=== PATIENT | female | born 1935 | race Caucasian/White ===

== ENCOUNTER → 2016-09-29 | Outpatient (CLI) | payer MEDICARE, OTHER ==
[2015-06-11 09:16] VITALS: BP 156/88
[~2016-09-29] MED LIST: ACET325T9 PO; ASCO500T2 PO; ASPI325T8 PO; CALC500T30 PO; CYAN10005 PO; IBUP-1027 PO; IOHEXOL 180 MG/ML 10 ML VIAL. ONE; NIAC500T PO; OMEG1CAP6 PO; UBID30CA6 PO; VITA10003 PO; VITA400T4 PO; [UNRECOGNIZED DRUG - CODE] PO; methylPREDNISolone ACETATE 40 MG/ML VIAL. ONE; methylPREDNISolone ACETATE 80 MG/ML VIAL. ONE
--- NOTE | 2016-09-30 07:50 | PAIN ---
DATE OF SERVICE: 09/29/2016 INITIAL CONSULTATION FOR PAIN CLINIC CHIEF COMPLAINT: Low back and bilateral lower extremity pain. HISTORY OF PRESENT ILLNESS: This is an 81-year-old female who presents with history of pain in the low back and bilateral lower extremities for "many years." The patient reports it is worse over the past 6 months or so, increasing with activity, especially with trying to tend the garden, stooping or bending, standing for more than 15-20 minutes, better with sitting or lying down, but still awakens her from sleep. After about 3:00 a.m., she is up and she has had difficulty getting back to sleep because of the pain in her back and legs, worse on the right side than the left. The patient reports it does not affect her bowel or bladder control, does not affect her ability to walk, specifically, she is not using any assistive devices to ambulate. She has had physical therapy in the past as well as chiropractic treatment and is doing exercises currently, which has not been helping the pain much and she is having difficulty doing the exercises because of the pain. The patient is taking Tylenol and ibuprofen, both of which decreased the pain only by about 20%. The patient reports disability rate from 0 to 10, 10 being the worst, it is 6 with family and home responsibilities, 7 with recreation and social activity, 3 with occupation, 2 with life support activities, and 0 with self care. The patient did have a CT scan of lumbar spine showing spondylitic changes with a transitional segment, mild canal narrowing is likely in the lower lumbar spine with ligamentum flavum hypertrophy and slight disk bulging at L3-L4 and L4-L5, minimal canal narrowing at L4-L5 as well. PAST MEDICAL HISTORY: Significant for arthritis, celiac disease, irritable bowel syndrome, hypertension, hearing loss. PREVIOUS SURGERY: Includes pacemaker placement, tonsillectomy, cholecystectomy, hysterectomy, carpal tunnels repair, skin cancer excision, rhinoplasty, appendectomy, and cataract extractions bilaterally. CURRENT MEDICATIONS: Include ____; methylsulfonylmethane; fish oil; vitamin B12; daily baby aspirin; vitamin C, E, and ____; ibuprofen; and Tylenol. ALLERGIES: THE PATIENT IS ALLERGIC TO CODEINE. FAMILY HISTORY: Significant for arthritis, diabetes, and heart disease. SOCIAL HISTORY: The patient does not smoke, does not drink alcohol. She is a Sister of Jina, lives in the [facility] in [place]. REVIEW OF SYSTEMS: The patient's review of systems is positive for those items mentioned in history of present illness. All systems reviewed and otherwise negative. It is complete, full and well documented on the patient's chart. PHYSICAL EXAMINATION: VITAL SIGNS: Blood pressure 191/77, pulse 62, respirations 18, temperature 98.4 degrees Fahrenheit. Height is 5 feet 5 inches, weighs 215 pounds. GENERAL: The patient is awake, alert, oriented, appropriate, very pleasant demeanor. HEENT: Head shows normocephalic, atraumatic. Extraocular movements are intact and symmetrical. Oral cavity, mucous membranes are moist and pink. Dentition is intact. NECK: Shows anterior throat supple without palpable lymphadenopathy noted. Swallow reflex is symmetrical. CHEST: Shows normal on inspection. Breath sounds clear to auscultation bilaterally. HEART: Shows S1 and S2 clear. ABDOMEN: Soft, nontender, nondistended. No palpable organomegaly. No rebound or guarding demonstrated. BACK: Shows spine grossly in the midline, slight exaggeration of thoracic kyphosis and mild flattening of lumbar lordotic curvature. No previous bruises, lesions, rashes or scars are noted. Lumbar paraspinous muscle shows some moderate tenderness with palpation, but only with deep palpation in the lower lumbar distribution, but is symmetrical without evidence of atrophy or hypertrophy. No tenderness over the sacrum and sacroiliac regions over the spinous processes. The patient shows good rotational motion of the lumbar spine, both laterally as well as extension and flexion without difficulty or pain reported. LOWER EXTREMITIES: Show deep tendon reflexes 2+ in the patellar, 1+ in the tendo calcaneus tendons. Motor exam is strong with 5/5 dorsiflexion, extension, quadriceps and hamstring flexion bilaterally. Peripheral pulses are 1+ in the posterior tibial and dorsalis pedis pulses. No peripheral edema is noted. No clubbing, no cyanosis. Lower extremities are warm and dry to touch, equal in color and appearance. Straight leg raise noted to be slightly positive on the right, but not on the left at about 45 degrees, which is decreased with knee flexion. Gaenslen's and Tomasz's maneuvers are negative bilaterally. The patient is able to stand, stand on her toes, and is walking with a normal appearing gait and does not have a shuffling or antalgic gait for short distance in the office today, not using any assistive devices such as canes or walkers to ambulate. IMPRESSION: 1. This is an 81-year-old female with a long history of low back and bilateral lower extremity pain, worse on the right than the left in a radicular fashion. 2. CT scan of lumbar spine as noted. 3. Hypertension. 4. Arthritis. 5. Hearing loss. PLAN: Options were discussed with the patient including conservative medical management, physical therapies, interventional techniques. She would like to pursue interventional techniques. We discussed the lumbar epidural steroid injection using description as well as anatomical models to describe the procedure. Risks were then discussed including, but not limited to bleeding, infection, possibility of epidural hematoma, subsequent neurologic compromise, dural puncture, headaches, spinal cord and/or nerve damage, side effects of steroid medication and poor results regarding pain control. The patient understands and wishes to proceed. The patient will return to clinic in approximately 2 weeks for followup. She was counseled on return appointment, activity level and side effects to be aware of. DIAGNOSES: Lumbar radiculopathy with lumbar degenerative disk disease. PROCEDURE: Lumbar epidural steroid injection, translaminar approach at the L4-L5 level using C-arm fluoroscopic guidance under sterile prep and drape, using local anesthetic. MEDICATION INJECTED: 120 mg of Depo-Medrol plus 10 mL of preservative-free normal saline and 2 mL of Isovue for contrast. CONDITION AT DISCHARGE: Stable. The patient tolerated the procedure well, had no complications. ROZINA GARSIA MD DR: AMADA/martine JOB#: [id number] / [id number]
== END | disposition home or self-care (01) ==
LOC: PNCL 10:20
PROVIDERS: ATTEND Anesthesiology
DX: M51.16 Intervertebral disc disorders with radiculopathy, lumbar region (principal); M19.90 Unspecified osteoarthritis, unspecified site; H91.90 Unspecified hearing loss, unspecified ear; I10 Essential (primary) hypertension; Z90.710 Acquired absence of both cervix and uterus; Z90.49 Acquired absence of other specified parts of digestive tract; Z98.41 Cataract extraction status, right eye; Z98.42 Cataract extraction status, left eye; Z83.3 Family history of diabetes mellitus; Z88.6 Allergy status to analgesic agent; E78.00 Pure hypercholesterolemia, unspecified
CPT/HCPCS: 62323; J1030; J1040

== ENCOUNTER → 2016-10-18 | Outpatient (CLI) | payer MEDICARE, OTHER ==
[2015-06-11 09:16] VITALS: BP 156/88
[~2016-10-18] MED LIST changes: -IOHEXOL 180 MG/ML 10 ML VIAL. ONE; -methylPREDNISolone ACETATE 40 MG/ML VIAL. ONE; -methylPREDNISolone ACETATE 80 MG/ML VIAL. ONE
== END | disposition home or self-care (01) ==
LOC: PNCL 12:41
PROVIDERS: ATTEND Anesthesiology
DX: M51.16 Intervertebral disc disorders with radiculopathy, lumbar region (principal); M40.294 Other kyphosis, thoracic region; M79.661 Pain in right lower leg; M79.662 Pain in left lower leg; I10 Essential (primary) hypertension
CPT/HCPCS: G0463

== ENCOUNTER 2017-03-29 08:28 | Outpatient (CLI) | payer MEDICARE, OTHER ==
[2017-03-29] MEDS ORDERED: IOHEXOL 180 MG/ML 10 ML VIAL. IT ONE (09:00)
[2017-03-29] MEDS ORDERED: CONTRAST GIVEN MC PRN (09:00)
[2017-03-29] MEDS ORDERED: LIDOCAINE 1% / SOD BICARB 8.4% 20 ML VIAL. IJ ONE (09:00)
[2017-03-29 10:05] VITALS: BP 226/85
[2017-03-29 10:08] VITALS: BP 238/86
[2017-03-29 10:36] VITALS: BP 231/90
--- NOTE | 2017-03-29 10:38 | RAD ---
Lumbar myelogram, 03/29/2017: History: Neurogenic claudication, back pain Under local anesthesia, aseptic conditions and fluoroscopic guidance a lumbar puncture was performed at the L4 level utilizing a 25-gauge Princess spinal needle. Good clear CSF flow was obtained following which 14 cc of Omnipaque 180 was injected into the thecal sac. The spinal needle was then removed and appropriate lumbar imaging performed. 3.0 minutes of fluoroscopy time was utilized. 13 fluoroscopic spot images were recorded. The patient tolerated the procedure well and was sent to CT in good condition. The following findings are delineated on the myelogram: 1. There are 6 lumbar type vertebral bodies. For purposes of these reports the lowest visible disc space will be considered to be L6-S1. 2. In the upright position there is a mild spondylolisthesis at L5-6. There are prominent anterior and posterior extradural defects, as well as lateral extradural defects, left greater than right, at this level causing moderate central spinal stenosis. No definite instability was seen on the upright lateral flexion and extension views. 3. There are mild anterior extradural defects at L2-3, L3-4 and L4-5. 4. There is poor opacification of the nerve root sleeves in the lumbar spine, with the exception of the S1 nerve root sleeves. CT of the lumbar spine-post myelogram, 03/29/2017: Multidetector CT imaging was performed with multiplanar reconstructions produced. The following findings are delineated: 1. At L1-2 there are mild degenerative changes involving the facet joints. No significant posterior disc bulge is seen. The central spinal canal and neural foramina are well maintained. 2. At L2-3 there is mild posterior disc bulging and marginal spurring. The central spinal canal and neural foramina are well maintained. 3. At L3-4 there is a vacuum disc phenomena with moderate broad-based posterior disc bulging. There is mild posterior ligamentous thickening related to mild facet joint arthropathy. The thecal sac measures 11 mm in AP diameter at the midline. There is only minimal inferior foraminal narrowing. 4. At L4-5 there is mild posterior annular bulging. There are mild degenerative changes involving the facet joints with mild posterior ligamentous thickening. The thecal sac measures 10 mm in AP diameter at the midline. The neural foramina are well maintained. 5. At L5-6 there is a vacuum disc phenomena with moderate broad-based posterior disc bulging. There are extensive degenerative changes involving the facet joints with moderate posterior ligamentous thickening. In the supine position for the CT exam there is only slight anterolisthesis at L5-6. More prominent anterolisthesis was present on the myelogram images in the upright position. At the disc level the thecal sac is mildly narrowed in a triangular configuration measuring 7-8 mm in AP diameter at the midline. There is mild distortion of the left side of the thecal sac just inferior to the disc level related to a mildly heterogeneous medium density process in the spinal canal, of lower density than the thickened ligamentum flavum. This could be a poorly defined synovial cyst related to the left facet joint or a scar. There is only mild foraminal narrowing bilaterally. 6. At L6-S1 there are moderate degenerative changes involving the facet joints. There is mild posterior annular bulging. The central spinal canal and neural foramina are well maintained. 7. Incidental note is made of moderate colonic diverticulosis. There is moderate aortic atherosclerosis. A 1 x 2 cm nonspecific right adrenal nodule is noted. IMPRESSION: 1. Six lumbar type vertebral bodies with the lowest visible displaced termed L6-S1 for purposes of these reports. 2. Multilevel degenerative changes as described above. 3. Mild spondylolisthesis at L5-6 with moderate associated central spinal stenosis, best demonstrated on the upright myelographic images. 4. Mild narrowing of the left side of the thecal sac just inferior to the L5-6 disc level which may be due to scarring or a poorly defined synovial cyst. 5. Small nonspecific right adrenal nodule.
[2017-03-29 10:46] VITALS: BP 217/104
== END 2017-03-29 11:26 | disposition home or self-care (01) ==
LOC: RAD 08:28
PROVIDERS: ATTEND Neurological Surgery
DX: M43.16 Spondylolisthesis, lumbar region (principal); Z79.01 Long term (current) use of anticoagulants; Z95.0 Presence of cardiac pacemaker
CPT/HCPCS: 72132; 72265

== ENCOUNTER → 2017-04-27 | Outpatient (CLI) | payer MEDICARE, OTHER ==
[2017-04-27 09:02] LABS: ADD MAN DIFF? NO
[2017-04-27 09:21] LABS: BASO % 1 % (0-3); EOS # 0.1 x10^3/uL (0.0-0.7); EOS % 2 % (0-3); HEMATOCRIT 40.8 % (36.0-47.0); HEMOGLOBIN 13.9 g/dL (12.0-15.5); LYMPH # 1.4 x10^3/uL (1.0-4.8); LYMPH % 20 % (24-48); MEAN CORPUSCULAR HEMOGLOBIN 30 pg (25-35); MEAN CORPUSCULAR HGB CONC 34 g/dL (31-37); MEAN CORPUSCULAR VOLUME 89 fL (79-100); MONO # 0.8 x10^3/uL (0.0-1.1); MONO % 12 % (0-9); NEUT # 4.7 x10^3uL (1.8-7.7); NEUT % 66 % (31-73); PLATELET COUNT 228 x10^3/uL (140-400); RED BLOOD COUNT 4.56 x10^6/uL (3.50-5.40); RED CELL DISTRIBUTION WIDTH 13.8 % (11.5-14.5)
[2017-04-27 09:31] LABS: ALBUMIN 3.9 g/dL (3.4-5.0); ALBUMIN/GLOBULIN RATIO 1.1 (1.0-1.7); ALK PHOS 79 U/L (46-116); ALT (SGPT) 26 U/L (14-59); ANION GAP 8 (6-14); AST (SGOT) 21 U/L (15-37); BLOOD UREA NITROGEN 30 mg/dL (7-20); BUN/CREATININE RATIO 30 (6-20); CALCIUM 9.9 mg/dL (8.5-10.1); CARBON DIOXIDE 30 mmol/L (21-32); CHLORIDE 102 mmol/L (98-107); GFR 53.2; GLUCOSE 70 mg/dL (70-99); POTASSIUM 4.2 mmol/L (3.5-5.1); SODIUM 140 mmol/L (136-145); TOTAL BILIRUBIN 0.7 mg/dL (0.2-1.0); TOTAL PROTEIN 7.6 g/dL (6.4-8.2)
[2017-04-27 22:14] LABS: MRSA BY PCR Negative (Negative)
== END | disposition home or self-care (01) ==
LOC: SURGPAT 08:33
DX: R94.31 Abnormal electrocardiogram [ECG] [EKG] (principal)
CPT/HCPCS: 36415; 80053; 85025; 87641; 93005

== ENCOUNTER 2017-05-04 06:52 | Observation (INO) | payer MEDICARE, OTHER ==
[2017-05-04] MEDS ORDERED: ONDANSETRON PF 4 MG/2 ML VIAL. IV ×2 (07:00→11:45)
[2017-05-04] MEDS ORDERED: PROCHLORPERAZINE 10 MG/2 ML VIAL. IV (07:00)
[2017-05-04] MEDS ORDERED: HYDROmorphone 2 MG/ML VIAL IV (07:00)
[2017-05-04] MEDS ORDERED: MORPHINE SULFATE 2 MG/ML DISP.SYRIN. IV (07:00)
[2017-05-04] MEDS ORDERED: fentaNYL PF VIAL 100 MCG/2 ML VIAL IV ×3 (07:00→11:45)
[2017-05-04] MEDS ORDERED: LIDOCAINE 1% PF 2 ML VIAL. ID (07:00)
[2017-05-04] MEDS: IV RINGERS,LACTATED 1000ML 1,000 ML IV ×2 (07:36→12:12)
[2017-05-04] MEDS ORDERED: GLYCOPYRROLATE 1 MG/5 ML VIAL. (08:00)
[2017-05-04] MEDS ORDERED: fentaNYL PF VIAL 100 MCG/2 ML VIAL (08:12)
[2017-05-04] MEDS ORDERED: LIDOCAINE 2% PF Vial for OR 5 ML VIAL. (08:12)
[2017-05-04] MEDS ORDERED: ROCURONIUM 50 MG/5 ML VIAL. (08:12)
[2017-05-04] MEDS ORDERED: DEXAMETHASONE SOD PHOS 20 MG/5 ML VIAL. (08:12)
[2017-05-04] MEDS ORDERED: ONDANSETRON PF 4 MG/2 ML VIAL. (08:12)
[2017-05-04] MEDS ORDERED: REMIFENTANIL 2 MG VIAL. IV (08:12)
[2017-05-04] MEDS ORDERED: PROPOFOL 20 ML IV (08:12)
[2017-05-04] MEDS ORDERED: PHENYLEPHRINE 10 MG/ML VIAL. (08:15)
[2017-05-04] MEDS ORDERED: PROPOFOL 50 ML IV ×2 (08:17→09:59)
[2017-05-04] MEDS ORDERED: MINERAL OIL/PETROLATUM,WHITE OPHTH OINT 3.5GM TUBE. (08:48)
[2017-05-04] MEDS: BACITRACIN 50,000 UNIT in IV NORMAL SALINE 1000ML BAG 1,000 ML IRR (09:28)
[2017-05-04] MEDS: THROMBIN TOPICAL 20,000 UNIT SPRAY.SYRN KIT TP (09:28)
[2017-05-04] MEDS: KETOROLAC 60 MG/2 ML INJ FOR OR. (09:28)
[2017-05-04] MEDS: GELATIN SPONGE SIZE 100. (09:28)
[2017-05-04] MEDS: BUPIVAC MPF-EPI 0.75%-1:200000 30 ML VIAL. (09:28)
[2017-05-04] MEDS ORDERED: DESFLURANE > 120 MINUTES IH (10:29)
[2017-05-04] MEDS ORDERED: NEOSTIGMINE METHYLSULFATE 5 MG/5 ML SYRINGE. (11:23)
[2017-05-04] MEDS ORDERED: diphenhydrAMINE HCL 25 MG CAPSULE PO (11:45)
[2017-05-04] MEDS ORDERED: 0.9 % SODIUM CHLORIDE 10 ML DISP.SYRIN. IV (11:45)
[2017-05-04] MEDS ORDERED: MAGNESIUM HYDROXIDE 2,400 MG/30 ML ORAL.SUSP. PO (11:45)
[2017-05-04] MEDS ORDERED: diphenhydrAMINE 50 MG/ML VIAL IV (11:45)
[2017-05-04] MEDS ORDERED: IBUPROFEN 400 MG TABLET. PO (11:45)
[2017-05-04] MEDS ORDERED: ACETAMINOPHEN 325 MG TABLET. PO (11:45)
[2017-05-04] MEDS ORDERED: MAG HYDROX/ALUMINUM HYD/SIMETH 30 ML ORAL.SUSP PO (11:45)
[2017-05-04] MEDS ORDERED: CALCIUM CARBONATE 500 MG TAB.CHEW PO (11:45)
[2017-05-04] MEDS ORDERED: amLODIPine BESYLATE 5 MG TABLET PO (13:00)
[2017-05-04] MEDS ORDERED: CYANOCOBALAMIN (VITAMIN B-12) 1,000 MCG TABLET. PO (13:00)
[2017-05-04] MEDS ORDERED: ASPIRIN ENTERIC COATED 81 MG TABLET.DR. PO (13:00)
[2017-05-04] MEDS ORDERED: hydroCHLOROthiazide 12.5 MG CAPSULE PO (13:00)
[2017-05-04] MEDS ORDERED: ASCORBIC ACID 500 MG TABLET PO (13:00)
[2017-05-04] MEDS: fentaNYL PF VIAL 100 MCG/2 ML VIAL IV (13:36)
[2017-05-04] MEDS ORDERED: traMADol 50 MG TABLET PO (15:30)
[2017-05-04] MEDS: traMADol 50 MG TABLET PO ×2 (15:39→17:44)
[2017-05-04] MEDS: POTASSIUM CL 20MEQ D5-0.45NACL 1,000 ML IV (17:40)
[2017-05-04] MEDS: BENZOCAINE/MENTHOL LOZENGE. PO ×2 (18:56→20:57)
[2017-05-04] MEDS: DOCUSATE SODIUM 100 MG CAPSULE. PO ×2 (20:57→20:58)
[2017-05-05] MEDS: traMADol 50 MG TABLET PO ×3 (00:34→12:18)
[2017-05-05] MEDS: BENZOCAINE/MENTHOL LOZENGE. PO ×4 (00:34→10:58)
[2017-05-05] MEDS: VITAMIN E 200 UNIT CAPSULE. PO (08:54)
[2017-05-05] MEDS: ASCORBIC ACID 500 MG TABLET PO (08:54)
[2017-05-05] MEDS: CYANOCOBALAMIN (VITAMIN B-12) 1,000 MCG TABLET. PO (08:54)
[2017-05-05] MEDS: LOSARTAN POTASSIUM 50 MG TABLET. PO (08:55)
[2017-05-05] MEDS: ASPIRIN ENTERIC COATED 81 MG TABLET.DR. PO (08:55)
[2017-05-05] MEDS: hydroCHLOROthiazide 12.5 MG CAPSULE PO (08:55)
[2017-05-05] MEDS: amLODIPine BESYLATE 5 MG TABLET PO (08:56)
[2017-05-05] MEDS: DOCUSATE SODIUM 100 MG CAPSULE. PO (08:58)
[2017-05-05] MEDS ORDERED: METHYLSULFONYLMETHANE 1000 MG PO (09:00)
== END 2017-05-05 13:30 | disposition home or self-care (01) ==
LOC: SURG 06:52 → 4 NORTH 05-05 05:59 → 4 SOUTHEST 11:45 → 4 SOUTHWST 18:57
DX: M48.061 Spinal stenosis, lumbar region without neurogenic claudication (principal); M43.10 Spondylolisthesis, site unspecified; Z83.3 Family history of diabetes mellitus; Z85.828 Personal history of other malignant neoplasm of skin; Z90.710 Acquired absence of both cervix and uterus
CPT/HCPCS: 63030; 76000; 88304; 88311; 96374; G0378; G0379; J0690; J1100; J1885; J2405; J2704; J2710; J3010; J3490; J7030; J7120

== ENCOUNTER → 2018-05-16 | Outpatient (CLI) | payer MEDICARE, OTHER ==
[2017-05-05 11:00] VITALS: BP 151/59
[~2018-05-16] MED LIST changes: +AMLO5TAB10 PO; +ASPI-482 PO; +CALC500T54 PO; +CELE200C PO; +CYAN-25 PO; -CYAN10005 PO; +DOCU-109 PO; +FENT1PAT15 TP; +FENT1PAT17 TD; +HYDR12.575 PO; +LOSA100T14 PO; +ONDA4TAB7 PO; +POLY17PO29 PO; +TRAM50TA PO
--- NOTE | 2018-05-16 14:47 | EKG ---
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
[2018-05-16 16:05] LABS: BASO % 1 % (0-3); EOS # 0.1 x10^3/uL (0.0-0.7); EOS % 1 % (0-3); HEMATOCRIT 36.4 % (36.0-47.0); HEMOGLOBIN 12.3 g/dL (12.0-15.5); LYMPH # 1.3 x10^3/uL (1.0-4.8); LYMPH % 17 % (24-48); MEAN CORPUSCULAR HEMOGLOBIN 31 pg (25-35); MEAN CORPUSCULAR HGB CONC 34 g/dL (31-37); MEAN CORPUSCULAR VOLUME 91 fL (79-100); MONO # 0.6 x10^3/uL (0.0-1.1); MONO % 8 % (0-9); NEUT # 5.8 x10^3uL (1.8-7.7); NEUT % 73 % (31-73); PLATELET COUNT 236 x10^3/uL (140-400); RED BLOOD COUNT 4.01 x10^6/uL (3.50-5.40); RED CELL DISTRIBUTION WIDTH 13.5 % (11.5-14.5); WHITE BLOOD COUNT 7.9 x10^3/uL (4.0-11.0)
[2018-05-16 16:13] LABS: PROTHROMBIN TIME PATIENT 12.8 SEC (11.7-14.0)
[2018-05-16 16:23] LABS: ALBUMIN 3.6 g/dL (3.4-5.0); CALCIUM 9.3 mg/dL (8.5-10.1); CREATININE 1.1 mg/dL (0.6-1.0); GFR 47.6; POTASSIUM 3.9 mmol/L (3.5-5.1); TOTAL BILIRUBIN 0.5 mg/dL (0.2-1.0); TOTAL PROTEIN 7.2 g/dL (6.4-8.2)
== END | disposition home or self-care (01) ==
LOC: SURGPAT 13:31
PROVIDERS: ATTEND Neurological Surgery
DX: Z01.818 Encounter for other preprocedural examination (principal); M43.16 Spondylolisthesis, lumbar region; Z88.8 Allergy status to other drugs, medicaments and biological substances
CPT/HCPCS: 36415; 80053; 85025; 85610; 85730; 87641; 93005

== ENCOUNTER 2018-06-17 07:43 | Inpatient (IN) | payer MEDICARE, OTHER ==
--- NOTE | 2018-06-14 11:25 | PREOP HP ---
DATE OF SERVICE: 06/17/2018 HISTORY OF PRESENT ILLNESS: The patient is a pleasant 83-year-old who 1 year ago underwent a lumbar microdecompression bilaterally at L5-L6. She did well from that surgery and was gradually improving. She said over the last few months, she has noticed increasing back pain and increasing buttock pain, which she describes as burning. She also notices pain, which can radiate into the lateral thighs and legs, especially with standing and walking. She rates her pain as a 6-8/10 in the mornings. Standing and walking increases her pain. She has virtually complete relief with sitting. She is using a fentanyl patch to help control her pain. She has had physical therapy for months and is now doing exercises at home faithfully. Despite this, she is slowly worsening. PAST MEDICAL HISTORY: Arthritis, skin cancer, headaches, pacemaker, shingles, stomach disease, tonsillitis. PAST SURGICAL HISTORY: Tonsillectomy, falls, hysterectomy and appendectomy in 1979, nose repair in 1979, a carpal tunnel release in 1989, permanent pacemaker in 2009, cholecystectomy in 2009, bilateral lumbar microdecompression, L5-S1 in 04/2017. FAMILY HISTORY: Cancer, diabetes, heart problems and disease, migraines. SOCIAL HISTORY: Retired. Exercises daily. Denies substance abuse. Denies tobacco use. Denies alcohol consumption. Drinks coffee daily. ALLERGIES: TO CODEINE AND GLUTEN. CURRENT MEDICATIONS: Tylenol, ibuprofen and fentanyl 12 mcg patches. REVIEW OF SYSTEMS: A 12-point review of systems was obtained and is noncontributory except for that mentioned above. PHYSICAL EXAMINATION: NEUROSURGERY EXAMINATION: GENERAL APPEARANCE: Alert, pleasant, no acute distress. HEAD: Normocephalic, atraumatic. SKIN: Warm and dry. Well-healed lumbar incision. MUSCULOSKELETAL: Lumbar paraspinal muscle bulk is normal, restricted range of motion of the lumbar spine, moderate tenderness of lower lumbar spine with palpation, normal range of motion of the lower extremities bilaterally. EXTREMITIES: No clubbing, cyanosis or edema. NEUROLOGIC: Alert and oriented x 3, normal recent and remote memory, strength 5/5 in bilateral lower extremities, sensory is intact to light touch in lower extremities bilaterally, reflexes were trace and symmetric in bilateral lower extremities, negative straight leg raising bilaterally, and slightly forward stooped gait. IMAGING: I reviewed a new CT scan as well as lumbar flexion and extension x-rays. On the CT scan, there is a grade 1 anterolisthesis of about 5 mm seen. This was not present on the CT scan from 08/24/2016. I also had lumbar flexion and extension films performed. On those studies, she has developed a grade 2 anterolisthesis at L4-L5 of 1.4 cm. ASSESSMENT/ PLAN: She has developed a significant spondylolisthesis at L4-L5 where there was none previously. At this point, she should undergo an instrumented lumbar fusion at this level. I did speak with her about the fusion and the risks involved as well as technique and expected postoperative course. She understands. She would like to go ahead. We will make the arrangements. BLANCA MORENO MD DR: SWEETIE/martine JOB#: [id number] / [id number] JAYLEN
[2018-06-17] VITALS (9 sets, daily range): BP systolic 138–168; BP diastolic 43–60
[~2018-06-17] VITALS: Ht 165.1 cm; Wt 96.6 kg
[~2018-06-17 07:43] MED LIST changes: +BACITRACIN 50,000 UNIT in IV NORMAL SALINE 1000ML BAG 1,000 ML IRR ONE; +BUPIVAC MPF-EPI 0.5%-1:200000 30 ML VIAL. ONE; -CYAN-25 PO; +CYAN10005 PO; -FENT1PAT17 TD; +GELATIN SPONGE SIZE 12-7MM SPONGE. TP ONE; +IV RINGERS,LACTATED 1000ML 1,000 ML IV SCH; +KETOROLAC 60 MG/2 ML INJ FOR OR. ONE; +LIDOCAINE 1% PF 2 ML VIAL. ID PRN; +ONDANSETRON PF 4 MG/2 ML VIAL. IV PRN; -POLY17PO29 PO; +PROCHLORPERAZINE 10 MG/2 ML VIAL. IV PRN; +THROMBIN TOPICAL 20,000 UNIT SPRAY.SYRN KIT TP ONE; +fentaNYL PF VIAL 100 MCG/2 ML VIAL IV PRN
[2018-06-17] MEDS ORDERED: POLY17PO29 PO (08:52)
[2018-06-17] MEDS ORDERED: REMIFENTANIL 2 MG VIAL. IV ONE ×2 (10:27→14:06)
[2018-06-17] MEDS ORDERED: ROCURONIUM 50 MG/5 ML VIAL. ONE (10:27)
[2018-06-17] MEDS ORDERED: PROPOFOL 50 ML IV ONE (10:30)
[2018-06-17] MEDS ORDERED: DESFLURANE > 120 MINUTES IH ONE (10:30)
[2018-06-17] MEDS ORDERED: ONDANSETRON PF 4 MG/2 ML VIAL. ONE (10:31)
[2018-06-17] MEDS ORDERED: LIDOCAINE 2% PF 5 ML VIAL. ONE (10:31)
[2018-06-17] MEDS ORDERED: PROPOFOL 20 ML IV ONE (10:31)
[2018-06-17] MEDS ORDERED: PHENYLEPHRINE 10 MG/ML VIAL. ONE (10:31)
[2018-06-17] MEDS ORDERED: DEXAMETHASONE SOD PHOS 20 MG/5 ML VIAL. ONE (10:31)
[2018-06-17] MEDS ORDERED: GLYCOPYRROLATE 1 MG/5 ML VIAL. ONE (10:32)
[2018-06-17] MEDS ORDERED: PROPOFOL 100 ML IV ONE (10:38)
--- NOTE | 2018-06-17 14:11 | RAD ---
CT study lumbar spine without contrast Clinical indications: Lumbar spondylolisthesis. History of neurogenic claudication. History of lumbar microdecompression. TECHNIQUE: Noncontrast helical CT scanning of the lumbar spine was performed. Multiplanar 2-D reconstructions were generated. PQRS compliance Statement One or more of the following individualized dose reduction techniques were utilized for this study: 1. Automated exposure control 2. Adjustment of the mA and/or kV according to patient size 3. Use of iterative reconstruction technique COMPARISON: March 29, [address] study lumbar spine. FINDINGS: 6 lumbar type vertebrae are evident. Therefore, the lowermost lumbar vertebra will be labeled as L6 for the sake of consistency. No compression fracture discitis or lytic process is evident. There is a grade 1 anterolisthesis of L4-5 which measures 8 mm. It measured 4 mm previously and therefore has increased. There has been progressive degenerative disc space narrowing and endplate spurring at this level. This is secondary to facet arthropathy. No spondylolysis is evident. The transverse processes are intact. At T12-L1, no focal disc protrusion or spinal canal stenosis or neural foraminal narrowing is seen. At L1-L2, no focal disc protrusion or spinal canal stenosis or neural foraminal narrowing is seen. At L2-L3, no spinal canal stenosis or neural foraminal narrowing is seen. There is mild diffuse disc protrusion and mild degenerative endplate spurring. At L3-L4, mild diffuse disc protrusion and degenerative endplate spurring and ligamentum flavum hypertrophy and facet arthropathy is evident. These findings combine to form a mild spinal canal stenosis. At L4-5, mild diffuse disc protrusion and degenerative endplate spurring and degenerative facet arthropathy and ligamentum flavum hypertrophy is seen. These findings combine to form a mild to moderate spinal canal stenosis. This is unchanged significantly. At L5-L6, diffuse disc protrusion and mild degenerative endplate spurring is seen. Ligamentum flavum hypertrophy and facet arthropathy is evident. These findings combine to form a moderate spinal canal stenosis. This has increased due to the increase in anterolisthesis at this level. More prominent indentation of the posterior left lateral aspect of the thecal sac is seen due to endplate spurring and associated soft tissue pannus formation around the arthritic joint. This was seen previously. This is unchanged. There is mild neural foraminal narrowing. The disc protrusion is more prominent on the left side within the left lateral neural foramen. At L6-S1, mild diffuse disc protrusion and mild degenerative endplate spurring is seen. No significant spinal canal stenosis is evident. There is mild narrowing of the neural foramina bilaterally. IMPRESSION: Increase in grade 1 anterolisthesis of L5-L6 since the prior myelogram study dated March 29, 2017. Moderate spinal canal stenosis at this level. No compression fracture. Electronically signed by: Ruiz Singh MD (06/17/2018 2:09 PM) [facility]
[2018-06-17] MEDS ORDERED: ceFAZolin SODIUM 1 GM VIAL ONE ×2 (15:48)
[2018-06-17] MEDS ORDERED: fentaNYL PF VIAL 100 MCG/2 ML VIAL ONE (16:36)
[2018-06-17] MEDS ORDERED: POTASSIUM CL 20MEQ D5-0.45NACL 1,000 ML IV SCH (16:59)
[2018-06-17] MEDS ORDERED: ONDANSETRON PF 4 MG/2 ML VIAL. IV PRN (17:00)
[2018-06-17] MEDS ORDERED: MAG HYDROX/ALUMINUM HYD/SIMETH 30 ML ORAL.SUSP PO PRN (17:00)
[2018-06-17] MEDS ORDERED: diphenhydrAMINE 50 MG/ML VIAL IV PRN (17:00)
[2018-06-17] MEDS ORDERED: CALCIUM CARBONATE 500 MG TAB.CHEW PO PRN (17:00)
[2018-06-17] MEDS ORDERED: MAGNESIUM HYDROXIDE 2,400 MG/30 ML ORAL.SUSP. PO PRN (17:00)
[2018-06-17] MEDS ORDERED: NALOXONE 0.4 MG/ML VIAL. IV PRN (17:00)
[2018-06-17] MEDS ORDERED: 0.9 % SODIUM CHLORIDE 10 ML DISP.SYRIN. IV PRN (17:00)
[2018-06-17] MEDS: fentaNYL PF VIAL 100 MCG/2 ML VIAL IV PRN ×5 (17:18→22:19)
[2018-06-17] MEDS ORDERED: hydrALAZINE 20 MG/ML VIAL. IVP ONE (17:45)
[2018-06-17] MEDS: ONDANSETRON ODT 4 MG TAB.RAPDIS. PO SCH (19:00)
[2018-06-17] MEDS: ceFAZolin SODIUM 1 GM in IV DEXTROSE 5% 50 ML IV SCH (19:58)
[2018-06-17] MEDS: diphenhydrAMINE HCL 25 MG CAPSULE PO PRN (20:02)
[2018-06-17] MEDS: METHOCARBAMOL 750 MG TABLET PO SCH (20:57)
[2018-06-17] MEDS: POLYETHYLENE GLYCOL 3350 17 GM PACKET. PO SCH (20:59)
[2018-06-17] MEDS: DOCUSATE SODIUM 100 MG CAPSULE. PO SCH ×2 (21:00)
[2018-06-18] MEDS: fentaNYL PF VIAL 100 MCG/2 ML VIAL IV PRN ×4 (02:03→18:07)
[2018-06-18] MEDS: diphenhydrAMINE HCL 25 MG CAPSULE PO PRN ×2 (02:33→21:25)
[2018-06-18 03:00] VITALS: BP 122/42
[2018-06-18] MEDS: ceFAZolin SODIUM 1 GM in IV DEXTROSE 5% 50 ML IV SCH ×2 (04:24→11:24)
[2018-06-18 04:45] VITALS: BP 149/51
[2018-06-18] MEDS: ONDANSETRON ODT 4 MG TAB.RAPDIS. PO SCH ×4 (06:00→18:07)
[2018-06-18 07:00] VITALS: BP 124/50
[2018-06-18] MEDS ORDERED: METHYLSULFONYLMETHANE 1000 MG PO SCH (09:00)
[2018-06-18] MEDS ORDERED: amLODIPine BESYLATE 5 MG TABLET PO SCH (09:00)
[2018-06-18] MEDS: DOCUSATE SODIUM 100 MG CAPSULE. PO SCH ×4 (09:00→21:00)
[2018-06-18] MEDS: ASCORBIC ACID 500 MG TABLET PO SCH (09:02)
[2018-06-18] MEDS: VITAMIN E 200 UNIT CAPSULE. PO SCH (09:02)
[2018-06-18] MEDS: CYANOCOBALAMIN (VITAMIN B-12) 1,000 MCG TABLET. PO SCH (09:02)
[2018-06-18] MEDS: METHOCARBAMOL 750 MG TABLET PO SCH ×3 (09:02→21:00)
[2018-06-18] MEDS: LOSARTAN POTASSIUM 50 MG TABLET. PO SCH (09:03)
[2018-06-18] MEDS: ASPIRIN ENTERIC COATED 81 MG TABLET.DR. PO SCH (09:04)
[2018-06-18] MEDS: CALCIUM CARBONATE 500 MG TABLET PO SCH (09:04)
[2018-06-18] MEDS: hydroCHLOROthiazide 25 MG TABLET PO SCH (09:04)
--- NOTE | 2018-06-18 09:31 | PDOC ---
PROGRESS NOTES Subjective Subjective POD #1 S/P instrumented fusion with OLIF L4-5 Back/ incision sore has not been up yet Objective Objective Vital Signs Date Time Temp Pulse Resp B/P (MAP) Pulse Ox O2 Delivery O2 Flow Rate FiO2 06/18/18 09:03 63 124/50 06/18/18 07:00 98.4 16 97 Nasal Cannula 2.0 98.4 Intake and Output 06/18/18 07:00 Intake Total 2340 ml Output Total 975 ml Balance 1365 ml Intake Oral 640 ml IV Total 1700 ml Output Urine Total 900 ml Estimated Blood Loss 75 ml Physical Exam General: Alert, Oriented X3, Cooperative MUSCULOSKELETAL: Other (MARKS) Neuro: Normal speech Skin: Other (dressing intact, flat) Plan Plan of Care encouraged increased activity today PT Brace ordered continue fentanyl patch and tylenol Comment Review of Relevant I have reviewed the following items merrick (where applicable) has been applied. Medications Current Medications Ondansetron HCl (Zofran) 4 mg PRN Q6HRS PRN IV NAUSEA/VOMITING; Start 06/17/18 at 07:00; Stop 06/18/18 at 06:59; Status DC Fentanyl Citrate (Fentanyl 2ml Vial) 25 mcg PRN Q5MIN PRN IV MILD PAIN Last administered on 06/17/18at 17:45; Start 06/17/18 at 07:00; Stop 06/18/18 at 06:59 ; Status DC Fentanyl Citrate (Fentanyl 2ml Vial) 50 mcg PRN Q5MIN PRN IV MODERATE TO SEVERE PAIN; Start 06/17/18 at 07:00; Stop 06/18/18 at 06:59; Status DC Ringer's Solution 1,000 ml @ 30 mls/hr Q24H IV Last administered on 06/17/18at 08:54; Start 06/17/18 at 07:00; Stop 06/17/18 at 18:59; Status DC Lidocaine HCl (Xylocaine-Mpf 1% 2ml Vial) 2 ml PRN 1X PRN ID PRIOR TO IV START ; Start 06/17/18 at 07:00; Stop 06/18/18 at 06:59; Status DC Prochlorperazine Edisylate (Compazine) 5 mg PACU PRN PRN IV NAUSEA, MRX1; Start 06/17/18 at 07:00; Stop 06/18/18 at 06:59; Status DC Bacitracin 07862 unit/Sodium Chloride 1,000 ml @ 1,000 mls/hr 1X ONCE IRR Last administered on 06/17/18at 12:20; Start 06/17/18 at 06:00; Stop 06/17/18 at 06:59; Status DC Bupivacaine HCl/ Epinephrine Bitart (Sensorcain-Mpf Epi 0.5%-1:569233) 30 ml STK -MED ONCE .ROUTE Last administered on 06/17/18at 12:20; Start 06/17/18 at 07:18 ; Stop 06/17/18 at 07:19; Status DC Ketorolac Tromethamine (Toradol For Or Only) 60 mg STK-MED ONCE .ROUTE Last administered on 06/17/18at 12:20; Start 06/17/18 at 07:19; Stop 06/17/18 at 07:20 ; Status DC Thrombin 20,000 unit STK-MED ONCE TP Last administered on 06/17/18at 12:50; Start 06/17/18 at 07:19; Stop 06/17/18 at 07:20; Status DC Gelatin (Gelfoam Size 12-7mm) 2 each 1X ONCE TP Last administered on at 12:50; Start 06/17/18 at 07:30; Stop 06/17/18 at 07:31; Status DC Cefazolin Sodium/ Dextrose 50 ml @ 100 mls/hr 1X ONCE IV Last administered on 06/17/18at 12:13; Start 06/17/18 at 08:15; Stop 06/17/18 at 08:44; Status DC Rocuronium [place] (Zemuron) 50 mg STK-MED ONCE .ROUTE ; Start 06/17/18 at 10:27 ; Stop 06/17/18 at 10:28; Status DC Remifentanil HCl (Ultiva) 2 mg STK-MED ONCE IV ; Start 06/17/18 at 10:27; Stop 06/17/18 at 10:28; Status DC Desflurane (Suprane) 90 ml STK-MED ONCE IH ; Start 06/17/18 at 10:30; Stop 06/17 at 10:31; Status DC Propofol 50 ml @ As Directed STK-MED ONCE IV ; Start 06/17/18 at 10:30; Stop at 10:31; Status DC Propofol 20 ml @ As Directed STK-MED ONCE IV ; Start 06/17/18 at 10:31; Stop at 10:32; Status DC Lidocaine HCl (Lidocaine Pf 2% Vial) 5 ml STK-MED ONCE .ROUTE ; Start 06/17/18 at 10:31; Stop 06/17/18 at 10:32; Status DC Dexamethasone Sodium Phosphate (Decadron) 20 mg STK-MED ONCE .ROUTE ; Start at 10:31; Stop 06/17/18 at 10:32; Status DC Phenylephrine HCl (Danyel-Synephrine Inj) 10 mg STK-MED ONCE .ROUTE ; Start at 10:31; Stop 06/17/18 at 10:32; Status DC Ondansetron HCl (Zofran) 4 mg STK-MED ONCE .ROUTE ; Start 06/17/18 at 10:31; Stop 06/17/18 at 10:32; Status DC Glycopyrrolate (Robinul) 1 mg STK-MED ONCE .ROUTE ; Start 06/17/18 at 10:32; Stop 06/17/18 at 10:33; Status DC Propofol 100 ml @ As Directed STK-MED ONCE IV ; Start 06/17/18 at 10:38; Stop 06/17/18 at 10:39; Status DC Remifentanil HCl (Ultiva) 2 mg STK-MED ONCE IV ; Start 06/17/18 at 14:06; Stop 06/17/18 at 14:07; Status DC Cefazolin Sodium (Ancef) 1 gm STK-MED ONCE .ROUTE ; Start 06/17/18 at 15:48; Stop 06/17/18 at 15:49; Status DC Cefazolin Sodium (Ancef) 1 gm STK-MED ONCE .ROUTE ; Start 06/17/18 at 15:48; Stop 06/17/18 at 15:49; Status DC Fentanyl Citrate (Fentanyl 2ml Vial) 100 mcg STK-MED ONCE .ROUTE ; Start at 16:36; Stop 06/17/18 at 16:37; Status DC Amlodipine Besylate (Norvasc) 5 mg DAILY PO ; Start 06/18/18 at 09:00; Status UNV Ascorbic Acid (Vitamin C) 500 mg DAILY PO Last administered on 06/18/18 09:02 ; Start 06/18/18 at 09:00 Aspirin (Ecotrin) 81 mg DAILY PO Last administered on 06/18/18 09:04; Start at 09:00 Cyanocobalamin (Vitamin B-12) 1,000 mcg DAILY PO Last administered on at 09:02; Start 06/18/18 at 09:00 Docusate Sodium (Colace) 100 mg BID PO ; Start 06/17/18 at 21:00 Hydrochlorothiazide (Hydrodiuril) 25 mg DAILY PO Last administered on 09:04; Start 06/18/18 at 09:00 Calcium Carbonate/ Glycine (Oscal) 500 mg DAILY08 PO Last administered on 09:04; Start 06/18/18 at 08:00 Losartan Potassium (Cozaar) 100 mg DAILY PO Last administered on 06/18/18 09: 03; Start 06/18/18 at 09:00 Non-Formulary Medication (Methylsulfonylmethane (Msm)) 1,000 mg DAILY PO ; Start 06/18/18 at 09:00; Status UNV Ondansetron HCl (Zofran Odt) 4 mg Q6HRS PO ; Start 06/17/18 at 18:00 Polyethylene Glycol (miraLAX PACKET) 17 gm QHS PO Last administered on 20:59; Start 06/17/18 at 21:00 Vitamin E 400 unit DAILY PO Last administered on 06/18/18 09:02; Start at 09:00 Fentanyl Citrate (Fentanyl 2ml Vial) 50 mcg PRN Q2HR PRN IV PAIN Last administered on 06/18/18 04:53; Start 06/17/18 at 17:00 Acetaminophen (Tylenol) 650 mg PRN Q6HRS PRN PO MILD PAIN / TEMP; Start at 17:00 Al Hydroxide/Mg Hydroxide (Mylanta Plus Xs) 30 ml PRN Q3HRS PRN PO HEARTBURN / GAS; Start 06/17/18 at 17:00 Calcium Carbonate/ Glycine (Tums) 500 mg PRN Q3HRS PRN PO INDIGESTION; Start at 17:00 Diphenhydramine HCl (Benadryl) 25 mg PRN Q6HRS PRN PO ITCHING Last administered on 06/18/18at 02:33; Start 06/17/18 at 17:00 Diphenhydramine HCl (Benadryl) 25 mg PRN Q6HRS PRN IV ITCHING; Start 06/17/18 at 17:00 Naloxone HCl (Narcan) 0.1 mg PRN Q2MIN PRN IV ADMIN; Start 06/17/18 at 17:00 Sodium Chloride (Normal Saline Flush) 3 ml QSHIFT PRN IV AFTER MEDS AND BLOOD DRAWS; Start 06/17/18 at 17:00 Potassium Chloride/Dextrose/ Sod Cl 1,000 ml @ 75 mls/hr [id number] IV Last administered on 06/17/18at 18:36; Start 06/17/18 at 16:59; Stop 06/18/18 at 08:28 ; Status DC Methocarbamol (Robaxin) 750 mg TID PO Last administered on 06/18/18at 09:02; Start 06/17/18 at 21:00 Docusate Sodium (Colace) 100 mg BID PO ; Start 06/17/18 at 21:00 Magnesium Hydroxide (Milk Of Magnesia) 2,400 mg PRN Q12HR PRN PO CONSTIPATION; Start 06/17/18 at 17:00 Ondansetron HCl (Zofran) 4 mg PRN Q6HRS PRN IV NAUESA, 1ST CHOICE; Start at 17:00 Cefazolin Sodium 1 gm/Dextrose 50 ml @ 100 mls/hr Q8H IV Last administered on 06/18/18at 04:24; Start 06/17/18 at 20:00; Stop 06/18/18 at 12:29 Fentanyl (Duragesic 50mcg/ Hr Patch) 1 patch Q3DAYS TD ; Start 06/20/18 at 09:00 Hydralazine HCl (Apresoline Inj) 5 mg 1X ONCE IVP Last administered on at 17:38; Start 06/17/18 at 17:45; Stop 06/17/18 at 17:46; Status DC Active Scripts Active Colace (Docusate Sodium) 100 Mg Capsule 100 Mg PO BID 30 Days Reported Miralax (Polyethylene Glycol 3350) 17 Gm Powd.pack 1 Packet PO HS FENTANYL 25mcg/hr (Fentanyl) 1 Each Patch.td72 1 Patch TP Q3DAYS Celebrex (Celecoxib) 200 Mg Capsule 100 Mg PO BID 30 Days Zofran (Ondansetron Hcl) 4 Mg Tablet 1 Tab PO Q6HRS Calcium (Calcium Carbonate) 500 Mg Tab.chew 500 Mg PO DAILY Amlodipine Besylate 5 Mg Tablet 5 Mg PO DAILY Losartan Potassium 100 Mg Tablet 100 Mg PO DAILY Hydrochlorothiazide Capsule (Hydrochlorothiazide) 12.5 Mg Capsule 25 Mg PO DAILY Aspir 81 (Aspirin) 81 Mg Tablet.dr 1 Tab PO DAILY Vitamin C (Ascorbic Acid) 500 Mg Tablet 500 Mg PO DAILY Vitamin E (Vitamin E Acid Succinate) 400 Unit Tablet 400 Unit PO DAILY Ibuprofen 400 Mg Tablet 400 Mg PO PRN Q6HRS PRN Tylenol (Acetaminophen) 325 Mg Tablet 1-2 Tab PO QID Msm (Methylsulfonylmethane) 1,000 Mg Capsule 1,000 Mg PO DAILY Fish Oil 1,000 Mg Capsule ([place]-3 Fatty Acids/Fish Oil) 1 Each Capsule 1 Each PO DAILY Vitamin B-12 (Cyanocobalamin (Vitamin B-12)) 1,000 Mcg Tablet 1 Tab PO DAILY Vitals/I & O Vital Sign - Last 24 Hours 06/17/18 06/17/18 06/17/18 06/17/18 17:08 17:08 17:18 17:23 Temp 97.4 97.4 Pulse 72 72 Resp 16 16 16 B/P (MAP) 181/100 205/76 Pulse Ox 97 97 100 O2 Delivery Simple Mask Mask Simple Mask Simple Mask O2 Flow Rate 10 10 10.0 10. 06/17/18 06/17/18 06/17/18 06/17/18 17:25 17:33 17:38 17:38 Pulse 70 70 Resp 16 15 16 B/P (MAP) 205/76 205/76 Pulse Ox 100 100 100 O2 Delivery Simple Mask Simple Mask Simple Mask O2 Flow Rate 10.0 10.0 5 06/17/18 06/17/18 06/17/18 06/17/18 17:45 17:51 18:05 18:30 Pulse 70 64 61 Resp 16 16 16 B/P (MAP) 180/80 176/78 151/43 (79) Pulse Ox 100 95 97 99 O2 Delivery Simple Mask Room Air Room Air Nasal Cannula Simple Mask Simple Mask O2 Flow Rate 5.0 2 2.0 06/17/18 06/17/18 06/17/18 06/17/18 18:45 19:00 19:15 19:30 Temp 98.9 98.9 Pulse 67 61 68 69 Resp 18 18 B/P (MAP) 144/52 (82) 163/54 (90) 154/57 (89) 168/60 (96) Pulse Ox 97 100 99 99 O2 Delivery Nasal Cannula Nasal Cannula Nasal Cannula Nasal Cannula O2 Flow Rate 2.0 2.0 2.0 2.0 06/17/18 06/17/18 06/17/18 06/17/18 20:00 20:00 20:30 21:30 Temp 99.9 98.4 99.9 98.4 Pulse 62 62 64 B/P (MAP) 162/57 (92) 149/57 (87) 149/58 (88) Pulse Ox 99 96 96 O2 Delivery Nasal Cannula Room Air Nasal Cannula Nasal Cannula O2 Flow Rate 2.0 2.0 2.0 06/17/18 06/17/18 06/18/18 06/18/18 22:19 22:30 02:03 03:00 Temp 97.9 97.9 Pulse 59 60 Resp 20 18 18 18 B/P (MAP) 138/50 (79) 122/42 (68) Pulse Ox 96 2 94 O2 Delivery Nasal Cannula Nasal Cannula Nasal Cannula Nasal Cannula O2 Flow Rate 2.0 2.0 2.0 06/18/18 06/18/18 06/18/18 06/18/18 04:45 04:53 05:30 07:00 Temp 98.4 98.4 Pulse 63 63 Resp 20 18 18 16 B/P (MAP) 149/51 (83) 124/50 (74) Pulse Ox 96 96 94 97 O2 Delivery Nasal Cannula Nasal Cannula Nasal Cannula Nasal Cannula O2 Flow Rate 2.0 2.0 2.0 2.0 06/18/18 09:03 Pulse 63 B/P (MAP) 124/50 Intake and Output 06/17/18 06/17/18 06/18/18 15:00 23:00 07:00 Intake Total 1990 ml 350 ml Output Total 375 ml 600 ml Balance 1615 ml -250 ml DEBBI WELLS APRN Jun 18, 2018 09:31
--- NOTE | 2018-06-18 11:00 | NUR ---
ASSUMED CARE WHEN TRANSFERRED TO ROOM 448. SHE IS RATING HER PAIN "5"; MEDICATED WITH FENTANYL IV. RESTING IN RECLINER WITH ICE TO LOWER BACK. SHE HAS GOOD SENSATION, PULSES AND MOTION IN BILATERAL LOWER EXTREMITIES. AFTER FENTANYL HER PAIN 0-1. CONTINUES TO REST IN RECLINER. WILL CHANGE DRESSING WHEN UP TO BATHROOM NEXT TIME; SHE AGREES. REFUSED TO HAVE BATH AT THIS TIME. ENCOURAGE TO DB AND COUGH; SHE HAD A TEMP OF 99.5; V/U
[2018-06-18 11:30] VITALS: BP 126/51
[2018-06-18 14:27] VITALS: BP 161/57
[2018-06-18] MEDS ORDERED: fentaNYL 50MCG/HR PATCH 1 PATCH PATCH.TD72 TD SCH (15:00)
[2018-06-18 18:22] VITALS: BP 146/70
--- NOTE | 2018-06-18 21:10 | NUR ---
Patient states "the Robaxin caused a burning in my right side of my back and into the right side of my face, it was very uncomfortable for 10 minutes." Asking for a "sleeping pill, I haven't slept since I've been here." Spoke w/ WILFRIDO Christiansen and orders rec'd. Fentanyl IVP not given per request as patient has a Fentanyl patch on. Tylenol and Benadryl given po.
[2018-06-18] MEDS: POLYETHYLENE GLYCOL 3350 17 GM PACKET. PO SCH (21:24)
[2018-06-18] MEDS: ACETAMINOPHEN 325 MG TABLET. PO PRN (21:26)
--- NOTE | 2018-06-19 01:38 | NUR ---
Has been sleeping soundly w/ snoring. "I think I have a fever." Temp 98.6. Able to turn self in bed independently. Ice pack placed to low back.
[2018-06-19 03:00] VITALS: BP 141/62
[2018-06-19] MEDS: diphenhydrAMINE HCL 25 MG CAPSULE PO PRN (03:10)
[2018-06-19] MEDS: ACETAMINOPHEN 325 MG TABLET. PO PRN ×2 (03:10→15:25)
[2018-06-19] MEDS: ONDANSETRON ODT 4 MG TAB.RAPDIS. PO SCH ×3 (06:00→10:06)
[2018-06-19] MEDS: fentaNYL PF VIAL 100 MCG/2 ML VIAL IV PRN (06:30)
--- NOTE | 2018-06-19 06:31 | NUR ---
"I am requesting some IV type pain medication, rather than Tylenol and Benadryl." Rating back pain 10/30. "It's terrible." Assisted pt to toilet w/ walker and w/o difficulty. Patient started to "wash up". Assisted to recliner instead. Patient pulled the foot lever of the recliner up and pushed the head section down of her own accord. Saline lock DC'd due to leaking site w/ saline flush. States her "allergy to codeine is nausea." Ice pack placed.
[2018-06-19 06:47] VITALS: BP 117/53
[2018-06-19] MEDS ORDERED: fentaNYL 25MCG/HR PATCH 1 PATCH PATCH.TD72 TD ONE (08:00)
--- NOTE | 2018-06-19 08:00 | NUR ---
sister Leo is resting in recliner with ice to back. she is rating her pain 3-4. she would rather have increase in her fentanyl patch instead of iv med. will use Tylenol for break through. dressing to back is clean dry and intact.
[2018-06-19] MEDS: hydroCHLOROthiazide 25 MG TABLET PO SCH (08:22)
[2018-06-19] MEDS: CYANOCOBALAMIN (VITAMIN B-12) 1,000 MCG TABLET. PO SCH (08:22)
[2018-06-19] MEDS: ASPIRIN ENTERIC COATED 81 MG TABLET.DR. PO SCH (08:22)
[2018-06-19] MEDS: VITAMIN E 200 UNIT CAPSULE. PO SCH (08:22)
[2018-06-19] MEDS: ASCORBIC ACID 500 MG TABLET PO SCH (08:23)
[2018-06-19] MEDS: CALCIUM CARBONATE 500 MG TABLET PO SCH (08:23)
[2018-06-19 08:24] VITALS: BP_DIAS 59
[2018-06-19] MEDS: LOSARTAN POTASSIUM 50 MG TABLET. PO SCH (08:24)
[2018-06-19] MEDS: DOCUSATE SODIUM 100 MG CAPSULE. PO SCH ×2 (09:00)
--- NOTE | 2018-06-19 10:07 | PDOC ---
PROGRESS NOTES Subjective Subjective up ambulating in room back/ incisional pain, controlled with medication Objective Objective Vital Signs Date Time Temp Pulse Resp B/P (MAP) Pulse Ox O2 Delivery O2 Flow Rate FiO2 06/19/18 08:24 66 156/59 06/19/18 08:22 20 Room Air 06/19/18 06:47 98.7 92 98.7 06/18/18 07:00 2.0 Intake and Output 06/19/18 07:00 Intake Total 1500 ml Output Total 0 ml Balance 1500 ml Intake Oral 600 ml IV Total 900 ml Stool Total 0 ml # Voids 2 Physical Exam General: Alert, Oriented X3, Cooperative MUSCULOSKELETAL: Other (MARKS) Skin: Other (dressing C,D,I, flat) Plan Plan of Care ok to dc today f/u 2 weeks Comment Review of Relevant I have reviewed the following items merrick (where applicable) has been applied. Medications Current Medications Ondansetron HCl (Zofran) 4 mg PRN Q6HRS PRN IV NAUSEA/VOMITING; Start 06/17/18 at 07:00; Stop 06/18/18 at 06:59; Status DC Fentanyl Citrate (Fentanyl 2ml Vial) 25 mcg PRN Q5MIN PRN IV MILD PAIN Last administered on 06/17/18at 17:45; Start 06/17/18 at 07:00; Stop 06/18/18 at 06:59 ; Status DC Fentanyl Citrate (Fentanyl 2ml Vial) 50 mcg PRN Q5MIN PRN IV MODERATE TO SEVERE PAIN; Start 06/17/18 at 07:00; Stop 06/18/18 at 06:59; Status DC Ringer's Solution 1,000 ml @ 30 mls/hr Q24H IV Last administered on 06/17/18at 08:54; Start 06/17/18 at 07:00; Stop 06/17/18 at 18:59; Status DC Lidocaine HCl (Xylocaine-Mpf 1% 2ml Vial) 2 ml PRN 1X PRN ID PRIOR TO IV START ; Start 06/17/18 at 07:00; Stop 06/18/18 at 06:59; Status DC Prochlorperazine Edisylate (Compazine) 5 mg PACU PRN PRN IV NAUSEA, MRX1; Start 06/17/18 at 07:00; Stop 06/18/18 at 06:59; Status DC Bacitracin 60231 unit/Sodium Chloride 1,000 ml @ 1,000 mls/hr 1X ONCE IRR Last administered on 06/17/18at 12:20; Start 06/17/18 at 06:00; Stop 06/17/18 at 06:59; Status DC Bupivacaine HCl/ Epinephrine Bitart (Sensorcain-Mpf Epi 0.5%-1:001168) 30 ml STK -MED ONCE .ROUTE Last administered on 06/17/18at 12:20; Start 06/17/18 at 07:18 ; Stop 06/17/18 at 07:19; Status DC Ketorolac Tromethamine (Toradol For Or Only) 60 mg STK-MED ONCE .ROUTE Last administered on 06/17/18 12:20; Start 06/17/18 at 07:19; Stop 06/17/18 at 07:20 ; Status DC Thrombin 20,000 unit STK-MED ONCE TP Last administered on 06/17/18at 12:50; Start 06/17/18 at 07:19; Stop 06/17/18 at 07:20; Status DC Gelatin (Gelfoam Size 12-7mm) 2 each 1X ONCE TP Last administered on at 12:50; Start 06/17/18 at 07:30; Stop 06/17/18 at 07:31; Status DC Cefazolin Sodium/ Dextrose 50 ml @ 100 mls/hr 1X ONCE IV Last administered on 06/17/18at 12:13; Start 06/17/18 at 08:15; Stop 06/17/18 at 08:44; Status DC Rocuronium [place] (Zemuron) 50 mg STK-MED ONCE .ROUTE ; Start 06/17/18 at 10:27 ; Stop 06/17/18 at 10:28; Status DC Remifentanil HCl (Ultiva) 2 mg STK-MED ONCE IV ; Start 06/17/18 at 10:27; Stop 06/17/18 at 10:28; Status DC Desflurane (Suprane) 90 ml STK-MED ONCE IH ; Start 06/17/18 at 10:30; Stop 06/17 at 10:31; Status DC Propofol 50 ml @ As Directed STK-MED ONCE IV ; Start 06/17/18 at 10:30; Stop at 10:31; Status DC Propofol 20 ml @ As Directed STK-MED ONCE IV ; Start 06/17/18 at 10:31; Stop at 10:32; Status DC Lidocaine HCl (Lidocaine Pf 2% Vial) 5 ml STK-MED ONCE .ROUTE ; Start 06/17/18 at 10:31; Stop 06/17/18 at 10:32; Status DC Dexamethasone Sodium Phosphate (Decadron) 20 mg STK-MED ONCE .ROUTE ; Start at 10:31; Stop 06/17/18 at 10:32; Status DC Phenylephrine HCl (Danyel-Synephrine Inj) 10 mg STK-MED ONCE .ROUTE ; Start at 10:31; Stop 06/17/18 at 10:32; Status DC Ondansetron HCl (Zofran) 4 mg STK-MED ONCE .ROUTE ; Start 06/17/18 at 10:31; Stop 06/17/18 at 10:32; Status DC Glycopyrrolate (Robinul) 1 mg STK-MED ONCE .ROUTE ; Start 06/17/18 at 10:32; Stop 06/17/18 at 10:33; Status DC Propofol 100 ml @ As Directed STK-MED ONCE IV ; Start 06/17/18 at 10:38; Stop 06/17/18 at 10:39; Status DC Remifentanil HCl (Ultiva) 2 mg STK-MED ONCE IV ; Start 06/17/18 at 14:06; Stop 06/17/18 at 14:07; Status DC Cefazolin Sodium (Ancef) 1 gm STK-MED ONCE .ROUTE ; Start 06/17/18 at 15:48; Stop 06/17/18 at 15:49; Status DC Cefazolin Sodium (Ancef) 1 gm STK-MED ONCE .ROUTE ; Start 06/17/18 at 15:48; Stop 06/17/18 at 15:49; Status DC Fentanyl Citrate (Fentanyl 2ml Vial) 100 mcg STK-MED ONCE .ROUTE ; Start at 16:36; Stop 06/17/18 at 16:37; Status DC Amlodipine Besylate (Norvasc) 5 mg DAILY PO ; Start 06/18/18 at 09:00; Status UNV Ascorbic Acid (Vitamin C) 500 mg DAILY PO Last administered on 06/19/18 08:23 ; Start 06/18/18 at 09:00 Aspirin (Ecotrin) 81 mg DAILY PO Last administered on 06/19/18 08:22; Start at 09:00 Cyanocobalamin (Vitamin B-12) 1,000 mcg DAILY PO Last administered on 08:22; Start 06/18/18 at 09:00 Docusate Sodium (Colace) 100 mg BID PO ; Start 06/17/18 at 21:00 Hydrochlorothiazide (Hydrodiuril) 25 mg DAILY PO Last administered on 08:22; Start 06/18/18 at 09:00 Calcium Carbonate/ Glycine (Oscal) 500 mg DAILY08 PO Last administered on 08:23; Start 06/18/18 at 08:00 Losartan Potassium (Cozaar) 100 mg DAILY PO Last administered on 06/19/18 08: 24; Start 06/18/18 at 09:00 Non-Formulary Medication (Methylsulfonylmethane (Msm)) 1,000 mg DAILY PO ; Start 06/18/18 at 09:00; Status UNV Ondansetron HCl (Zofran Odt) 4 mg Q6HRS PO Last administered on 06/18/18 18:07 ; Start 06/17/18 at 18:00 Polyethylene Glycol (miraLAX PACKET) 17 gm QHS PO Last administered on 21:24; Start 06/17/18 at 21:00 Vitamin E 400 unit DAILY PO Last administered on 06/19/18 08:22; Start at 09:00 Fentanyl Citrate (Fentanyl 2ml Vial) 50 mcg PRN Q2HR PRN IV PAIN Last administered on 06/18/18 18:07; Start 06/17/18 at 17:00 Acetaminophen (Tylenol) 650 mg PRN Q6HRS PRN PO MILD PAIN / TEMP Last administered on 06/19/18 03:10; Start 06/17/18 at 17:00 Al Hydroxide/Mg Hydroxide (Mylanta Plus Xs) 30 ml PRN Q3HRS PRN PO HEARTBURN / GAS; Start 06/17/18 at 17:00 Calcium Carbonate/ Glycine (Tums) 500 mg PRN Q3HRS PRN PO INDIGESTION; Start at 17:00 Diphenhydramine HCl (Benadryl) 25 mg PRN Q6HRS PRN PO ITCHING Last administered on 06/19/18at 03:10; Start 06/17/18 at 17:00 Diphenhydramine HCl (Benadryl) 25 mg PRN Q6HRS PRN IV ITCHING; Start 06/17/18 at 17:00 Naloxone HCl (Narcan) 0.1 mg PRN Q2MIN PRN IV ADMIN; Start 06/17/18 at 17:00 Sodium Chloride (Normal Saline Flush) 3 ml QSHIFT PRN IV AFTER MEDS AND BLOOD DRAWS; Start 06/17/18 at 17:00 Potassium Chloride/Dextrose/ Sod Cl 1,000 ml @ 75 mls/hr [id number] IV Last administered on 06/17/18at 18:36; Start 06/17/18 at 16:59; Stop 06/18/18 at 08:28 ; Status DC Methocarbamol (Robaxin) 750 mg TID PO Last administered on 06/18/18at 14:24; Start 06/17/18 at 21:00; Stop 06/19/18 at 01:38; Status DC Docusate Sodium (Colace) 100 mg BID PO ; Start 06/17/18 at 21:00 Magnesium Hydroxide (Milk Of Magnesia) 2,400 mg PRN Q12HR PRN PO CONSTIPATION; Start 06/17/18 at 17:00 Ondansetron HCl (Zofran) 4 mg PRN Q6HRS PRN IV NAUESA, 1ST CHOICE; Start at 17:00 Cefazolin Sodium 1 gm/Dextrose 50 ml @ 100 mls/hr Q8H IV Last administered on 06/18/18at 11:24; Start 06/17/18 at 20:00; Stop 06/18/18 at 12:29; Status DC Fentanyl (Duragesic 50mcg/ Hr Patch) 1 patch Q3DAYS TD Last administered on at 14:39; Start 06/18/18 at 15:00 Hydralazine HCl (Apresoline Inj) 5 mg 1X ONCE IVP Last administered on at 17:38; Start 06/17/18 at 17:45; Stop 06/17/18 at 17:46; Status DC Fentanyl (Duragesic 25mcg/ Hr Patch) 1 patch 1X ONCE TD Last administered on at 08:22; Start 06/19/18 at 08:00; Stop 06/19/18 at 08:01; Status DC Active Scripts Active Colace (Docusate Sodium) 100 Mg Capsule 100 Mg PO BID 30 Days Reported Miralax (Polyethylene Glycol 3350) 17 Gm Powd.pack 1 Packet PO HS FENTANYL 25mcg/hr (Fentanyl) 1 Each Patch.td72 1 Patch TP Q3DAYS Celebrex (Celecoxib) 200 Mg Capsule 100 Mg PO BID 30 Days Zofran (Ondansetron Hcl) 4 Mg Tablet 1 Tab PO Q6HRS Calcium (Calcium Carbonate) 500 Mg Tab.chew 500 Mg PO DAILY Amlodipine Besylate 5 Mg Tablet 5 Mg PO DAILY Losartan Potassium 100 Mg Tablet 100 Mg PO DAILY Hydrochlorothiazide Capsule (Hydrochlorothiazide) 12.5 Mg Capsule 25 Mg PO DAILY Aspir 81 (Aspirin) 81 Mg Tablet.dr 1 Tab PO DAILY Vitamin C (Ascorbic Acid) 500 Mg Tablet 500 Mg PO DAILY Vitamin E (Vitamin E Acid Succinate) 400 Unit Tablet 400 Unit PO DAILY Ibuprofen 400 Mg Tablet 400 Mg PO PRN Q6HRS PRN Tylenol (Acetaminophen) 325 Mg Tablet 1-2 Tab PO QID Msm (Methylsulfonylmethane) 1,000 Mg Capsule 1,000 Mg PO DAILY Fish Oil 1,000 Mg Capsule ([place]-3 Fatty Acids/Fish Oil) 1 Each Capsule 1 Each PO DAILY Vitamin B-12 (Cyanocobalamin (Vitamin B-12)) 1,000 Mcg Tablet 1 Tab PO DAILY Vitals/I & O Vital Sign - Last 24 Hours 06/18/18 06/18/18 06/18/18 06/18/18 11:20 11:30 11:53 11:55 Temp 99.5 99.5 Pulse 63 Resp 20 20 18 B/P (MAP) 126/51 (76) Pulse Ox 95 O2 Delivery Room Air Room Air Room Air Room Air 06/18/18 06/18/18 06/18/18 06/18/18 14:27 18:07 18:20 18:22 Temp 97.9 98.7 97.9 98.7 Pulse 67 61 Resp 20 20 B/P (MAP) 161/57 (91) 146/70 (95) Pulse Ox 93 93 93 93 O2 Delivery Room Air Room Air Room Air 06/18/18 06/19/18 06/19/18 06/19/18 23:54 03:00 06:47 08:00 Temp 98.8 98.7 98.8 98.7 Pulse 80 65 Resp 16 20 20 B/P (MAP) 141/62 (88) 117/53 (74) Pulse Ox 92 92 O2 Delivery Room Air Room Air Room Air 06/19/18 06/19/18 08:22 08:24 Pulse 66 Resp 20 B/P (MAP) 156/59 O2 Delivery Room Air Intake and Output 06/18/18 06/18/18 06/19/18 15:00 23:00 07:00 Intake Total 1100 ml 400 ml Output Total 0 ml Balance 1100 ml 400 ml DEBBI WELLS APRN Jun 19, 2018 10:06
--- NOTE | 2018-06-19 10:09 | DISCH ---
DISCHARGE INSTRUCTIONS Condition on Discharge Condition on Discharge: Stable Activity After Discharge Activity Instructions for Disc: Activity as tolerated, Avoid exertion Bathing Instructions: Shower-keep dressing dry, No Tub Bath until see Lifting Instructions after Dis: No heavy lifting, No pulling or pushing, Add. restrict see below Driving Instructions after Dis: Other, see below Weight Bearing Status after Di: As tolerated Diet after Discharge Diet after Discharge: Regular Additional Diet Restrictions: resume home diet Wound Incision Care Wound/Incision Care: Ice to area for comfort, Keep wound/cast CDI, Change dressing, Reinforce dressing PRN Other wound/incision instructi: may dc dressing in 48 hours when dry, then may shower, no soaking Contacting the DRLeila after DC Call your doctor for: Concerns you may have Follow-Up Follow up with: Dr. Moreno's nurse in 2 weeks [phone] Treatment/Equipment after DC Adaptive Equipment Issued: None BLANCA MORENO MD Jun 19, 2018 10:09
[2018-06-19] MEDS ORDERED: FENT1PAT17 TD (10:15)
--- NOTE | 2018-06-19 12:00 | NUR ---
gave sister Leo Tylenol for breakthrough pain along with Mary regan. states the fentanyl patch increase has helped with pain. agrees to return to wellness center at [facility].
[2018-06-19 15:00] VITALS: BP_SYST 57
--- NOTE | 2018-06-19 16:09 | NUR ---
removing Dressing prior to dismissing; she has redness around edges of Medipore tape. skin appeared raw and red. cleansed with chlor prep Xeroform and Telfa then paper tape. report called to Colette about the change in dressing change. verbalized understanding.
--- NOTE | 2018-06-19 16:20 | NUR ---
dismissed to wellness center at [facility]
--- NOTE | 2018-06-20 17:09 | PATHOLOGY ---
[facility] Accession Number: [id number] . 01 Material submitted: . LUMBAR DECOMPRESSION AND DISC . 01 Clinical history: . Lumbar spondylolisthesis . 02 Diagnosis: Segments of cartilaginous, fibroadipose, and skeletal muscle tissue and bone, lumbar decompression and disc: - Degenerative changes of cartilaginous tissue. (JPM:michael; 06/20/2018) QMS/06/20/2018 . 02 Comment: There is no evidence of an acute inflammatory process or malignancy. . 02 Electronically signed: . Ck Sanchez MD, Pathologist NPI- [id number] . 01 Gross description: . Received in formalin labeled "Leo Araujo, lumbar decompression and disc," are several pieces of glistening, fibrous tissue measuring 4.3 x 3.0 x 1.7 cm in aggregate dimensions, containing small fragments of possible bone. The tissue is submitted representatively in cassette A1, following decalcification. (TSD; 06/18/2018) TOB/TOB . 02 Pathologist provided ICD-10: M51.36 . 02 CPT . 278208, 633833 Specimen Comment: A courtesy copy of this report has been sent to Specimen Comment: [phone], . Specimen Comment: Report sent to / DR GARCIA Specimen Comment: A duplicate report has been generated due to demographic updates. Performed at: 01 [facility] [address] [address], [place] [id number] MD Kapil Carbajal MD Phone: [phone] Performed at: 02 [facility] [address] [place], [place] [id number] MD Ck Sanchez MD Phone: [phone]
--- NOTE | 2018-06-25 19:17 | OP ---
DATE OF SURGERY: 06/17/2018 PREOPERATIVE DIAGNOSIS: Lumbar spinal stenosis with neural foraminal narrowing and radiculopathy, L4-L5. POSTOPERATIVE DIAGNOSIS: Lumbar spinal stenosis with neural foraminal narrowing and radiculopathy, L4-L5. OPERATIONS PERFORMED: 1. Posterior instrumentation L4-L5 with posterolateral fusion L4-L5. 2. Anterior discectomy L4-L5 with anterior fusion L4-L5 with interbody fusion cage, packed with allograft bone. The operation was done with bone marrow aspiration, BrainLAB guidance, fluoroscopy, microscopic dissection. SURGEON: Luke Moreno M.D. IT RISK ANALYST: RAJIV Cary assisted with the surgery. She assisted with the exposure, instrumentation, posterolateral fusion, anterior discectomy and fusion. OPERATIVE INDICATIONS: The patient is a very pleasant 83-year-old woman who developed intractable back, bilateral leg pain. In the past, she has undergone lumbar microsurgery at this level which for the purposes of this dictation we will call L4-L5, but it has also been called L5-L6 in other dictations. At any rate, following that decompression, she has gradually developed spondylolisthesis, which has reached a grade 2. Because of her symptomatology and failure to improve with conservative measures, I recommended posterior instrumentation and fusion. She understood the surgery and the risks, she understood the technique of the operation and she wished to go ahead. DESCRIPTION OF PROCEDURE: Following general endotracheal anesthesia, the patient was positioned prone on the Jelani table. Her lumbar region was prepped and draped in standard fashion. SHWETA hose and AV impulse boots were applied for DVT prophylaxis. A microscope was draped. Fluoroscopy was draped and brought in the field. Monitoring was established. Ancef 2 gram was given less than 1 hour prior to the initiation of the surgery. Using fluoroscopic guidance, paramedian incisions were made over the L4-L5 interspace. I dissected down the skin and subcutaneous tissue and I reflected the paraspinal muscles and placed a [place] microdisc retractor. I brought in the Zigmo system, which I had initialized prior to making my initial incision and exposed the facets and transverse processes. I drilled into the posterior aspect of the facets into the pedicle. Again using the Zigmo system, I then used the black ball followed by ball tip probe, followed by tap, followed by screw placement. This was done at L4 bilaterally and L5 bilaterally. Rods were applied. During this time, I did excoriate the lateral facet and transverse processes and I packed allograft bone, which had been bathed with 20 mL of bone marrow aspirate. Once this was accomplished, then I did distract the disc space slightly and worked to help reduce the spondylolisthesis. I then made an incision in the left flank after air-planing the table away from me and passed the BrainmultiBIND biotec system with sleeve down to dock at the lateral aspect of the pedicle of L5 and then gently worked this superiorly to the disc space at L4-L5. I did stimulate electrically to assure that the far lateral root was not in the path. I placed a K-wire followed by dilators and passed the working channel from the flank. I then through the working channel performed a generous discectomy with pituitary rongeurs. I scraped away cartilaginous endplate and then placed the dilator and removed the working channel and then placed a shield to help protect the far lateral root. Then, I passed trials into the disc space and using fluoroscopic imaging I assured myself of excellent positioning. I then measured and placed a 9 x 9 x 28 Amendia cage, which was packed with allograft bone and this was gently tapped into position. The screws I used for this case were a 6.5 x 40 screws in L5 and 5.5 x 40 screws in L4 along with 45 mm rods. Following placement of the cage, then I disconnected from the cage and irrigated copiously. I did compress slightly and torqued the construct sequentially and removed the shield at this point. Once the construct was torqued I irrigated copiously with antibiotic solution. I closed the wound in layers with absorbable suture and the skin was closed with 4-0 subcuticular stitch. The operation went very well and the patient was taken uneventfully to Recovery Room in excellent condition. I was quite pleased with the surgery. LUKE MORENO MD DR: SWEETIE/martine JOB#: [id number] / [id number] JAYLEN
--- NOTE | 2018-07-10 14:55 | DS ---
DATE OF DISCHARGE: 06/19/2018 DATE OF SURGERY: 06/17/2018. DISCHARGE DIAGNOSES: Lumbar spinal stenosis with neural foraminal narrowing and radiculopathy, L4-L5. OPERATION PERFORMED: 1. Posterior instrumentation L4-L5 with posterolateral fusion, L4-L5. 2. Anterior diskectomy L4-L5 with anterior fusion L4-L5 with interbody fusion cage. HISTORY OF PRESENT ILLNESS: The patient is a pleasant 83-year-old woman who developed intractable back and bilateral leg pain. In the past, she has undergone lumbar microsurgery at this level and following that decompression has gradually developed a spondylolisthesis, which reached a grade 2. Because of her symptoms and failure to improve with conservative measures, I recommended posterior instrumentation and fusion. She understood the surgery and the risk and wished to proceed. HOSPITAL COURSE: She was admitted to the floor postoperatively where she did well. She was up ambulating in the room and in the halls. Physical therapy was initiated and instruction was given to her regarding her activities. Her pain is well controlled and she is in good condition to return to [facility]. DISCHARGE MEDICATIONS: She will resume her medications per the MRAD. DISCHARGE INSTRUCTIONS: She was instructed regarding incision care, activity restrictions and expectations for the next several weeks. She will follow up in our office in 2 weeks. She understands to call with any questions or concerns. BLANCA MORENO MD DR: KEIKO/martine JOB#: [id number] / [id number]
== END 2018-06-19 15:55 | disposition home or self-care (01) | DRG 455 ==
LOC: OPSVCIP 07:43 → 4 NORTH 18:22 → 4 SOUTHEST 06-18 11:48
PROVIDERS: ADMIT Neurological Surgery; ATTEND Neurological Surgery
PROC: 0SG0071 Fusion of Lumbar Vertebral Joint with Autologous Tissue Substitute, Posterior Approach, Posterior Column, Open Approach (ICD-10-PCS; 2018-06-17)
PROC: 0SB20ZZ Excision of Lumbar Vertebral Disc, Open Approach (ICD-10-PCS; 2018-06-17)
PROC: 07DS3ZZ Extraction of Vertebral Bone Marrow, Percutaneous Approach (ICD-10-PCS; 2018-06-17)
PROC: 0SG00A0 Fusion of Lumbar Vertebral Joint with Interbody Fusion Device, Anterior Approach, Anterior Column, Open Approach (ICD-10-PCS; principal; 2018-06-17 10:30)
DX: M48.061 Spinal stenosis, lumbar region without neurogenic claudication (principal); M43.16 Spondylolisthesis, lumbar region; M54.16 Radiculopathy, lumbar region; M19.90 Unspecified osteoarthritis, unspecified site; Z95.0 Presence of cardiac pacemaker; Z83.3 Family history of diabetes mellitus; Z85.828 Personal history of other malignant neoplasm of skin; Z90.49 Acquired absence of other specified parts of digestive tract; Z90.710 Acquired absence of both cervix and uterus; Z88.8 Allergy status to other drugs, medicaments and biological substances; Z79.899 Other long term (current) drug therapy
CPT/HCPCS: 36415; 72131; 76000; 86850; 86900; 86901; 88304; 88311; A7015; C1713; C1893; J0360; J0690; J0696; J1100; J1885; J2001; J2405; J2704; J3010; J3490; J7030; J7120; Q0162; Q0163; 97110; 97116; 97530

== ENCOUNTER → 2021-04-27 | Outpatient (CLI) | payer MEDICARE, OTHER ==
[~2021-04-27] MED LIST changes: +AMLO-186 PO; -AMLO5TAB10 PO; -ASCO500T2 PO; +ASCO500T4 PO; -BACITRACIN 50,000 UNIT in IV NORMAL SALINE 1000ML BAG 1,000 ML IRR ONE; -BUPIVAC MPF-EPI 0.5%-1:200000 30 ML VIAL. ONE; +CYAN-25 PO; -CYAN10005 PO; +FENT1PAT17 TD; -GELATIN SPONGE SIZE 12-7MM SPONGE. TP ONE; -IV RINGERS,LACTATED 1000ML 1,000 ML IV SCH; -KETOROLAC 60 MG/2 ML INJ FOR OR. ONE; -LIDOCAINE 1% PF 2 ML VIAL. ID PRN; -ONDANSETRON PF 4 MG/2 ML VIAL. IV PRN; +POLY17PO29 PO; -PROCHLORPERAZINE 10 MG/2 ML VIAL. IV PRN; -THROMBIN TOPICAL 20,000 UNIT SPRAY.SYRN KIT TP ONE; +UBID30CA15 PO; -UBID30CA6 PO; -VITA10003 PO; +[UNRECOGNIZED DRUG - CODE] PO; -fentaNYL PF VIAL 100 MCG/2 ML VIAL IV PRN
--- NOTE | 2021-04-27 13:17 | CARD ---
MR#: [id number] Date of Study: 04/27/2021 Ordering Physician: YAMILETH LUX, Referring Physician: YAMILETH LUX, Tech: Romi Reina [facility] APPROVED REPORT EXAM: Two-dimensional and M-mode echocardiogram with Doppler and color Doppler. Other Information Quality : Technically LimitedHR: 65bpm Rhythm : NSR INDICATION Dyspnea RISK FACTORS Hypertension Obesity 2D DIMENSIONS RVDd2.8 (2.9-3.5cm)Left Atrium(2D)3.9 (1.6-4.0cm) IVSd1.0 (0.7-1.1cm)Aortic Root(2D)3.3 (2.0-3.7cm) LVDd4.1 (3.9-5.9cm)LVOT Diameter2.2 (1.8-2.4cm) PWd1.1 (0.7-1.1cm)LVDs2.6 (2.5-4.0cm) FS (%) 37.6 %SV51.6 ml LVEF(%)68.1 (>50%) Aortic Valve AoV Peak Paxton.113.9cm/sAoV VTI18.9cm AO Peak GR.5.2mmHgLVOT Peak Paxton.87.9cm/s AO Mean GR.3mmHgAVA (VMAX)2.96cm2 Mitral Valve MV E Smacwcjq408.2cm/sMV DECEL BAYG378xo MV A Zheytpnv92.4cm/sE/A Ratio4.9 Pulmonary Valve PV Peak Upidrqkq250.1cm/s Tricuspid Valve TR P. Famjvklp135co/sTR Peak Gr.23mmHg LEFT VENTRICLE The left ventricle is normal size. There is borderline concentric left ventricular hypertrophy. The l eft ventricular systolic function is normal. Estimated ejection fraction 60-65%. There is normal LV segmental wall motion. RIGHT VENTRICLE The right ventricle is normal size. There is normal right ventricular wall thickness. Systolic functi on is mildly reduced. ATRIA The left atrium size is normal. The right atrium size is normal. The interatrial septum is intact wit h no evidence for an atrial septal defect or patent foramen ovale as noted on 2-D or Doppler imaging. AORTIC VALVE The aortic valve is normal in structure and function. Doppler and Color Flow revealed no significant aortic regurgitation. There is no significant aortic valvular stenosis. MITRAL VALVE The mitral valve is normal in structure and function. There is no evidence of mitral valve prolapse. There is no mitral valve stenosis. Doppler and Color-flow revealed mild mitral regurgitation. TRICUSPID VALVE The tricuspid valve is normal in structure and function. Doppler and Color Flow revealed mild tricusp id regurgitation. Estimated ejection fraction 28 mmHg. There is no tricuspid valve stenosis. PULMONIC VALVE The pulmonary valve is normal in structure and function. Doppler and Color Flow revealed trace to mil d pulmonic valvular regurgitation. GREAT VESSELS The aortic root is normal in size. The ascending aorta is normal in size. The IVC is normal in size a nd collapses >50% with inspiration. PERICARDIAL EFFUSION There is no evidence of significant pericardial effusion. Critical Notification Critical Value: No <Conclusion> The left ventricular systolic function is normal. Estimated ejection fraction 60-65%. There is normal LV segmental wall motion. Mild mitral regurgitation. Mild tricuspid regurgitation. Estimated PAP 28 mmHg. There is no evidence of significant pericardial effusion. Signed by : Geovanny Peña, Electronically Approved : 04/27/2021 13:16:56
== END ==
LOC: ECHO 09:46
PROVIDERS: ATTEND Internal Medicine
DX: I08.8 Other rheumatic multiple valve diseases (principal); I50.42 Chronic combined systolic (congestive) and diastolic (congestive) heart failure; R06.00 Dyspnea, unspecified
CPT/HCPCS: 93306

== ENCOUNTER → 2021-07-27 | Outpatient (CLI) | payer MEDICARE, OTHER ==
[~2021-07-27] MED LIST changes: +CLON0.1T PO; +DEXAMETHASONE PRES.FREE 10 MG/ML VIAL. ONE; +GABA-585 PO; +GABA600T7 PO; +IOHEXOL 180 MG/ML 10 ML VIAL. ONE; +POTA-121 PO; +TORS20TA2 PO
--- NOTE | 2021-07-27 14:56 | PDOC1 ---
INITIAL PAIN CONSULT DATE OF SERVICE: DOS: DATE: 07/27/21 TIME: 14:46 CHIEF COMPLAINT: Chief Complaint: Low back and bilateral lower extremity pain HISTORY OF PRESENT ILLNESS: 86-year-old female presents history of pain low back and bilateral lower extremities left slightly greater than right not the result of any specific injury or accident that she is aware of, but getting worse over time with walking standing change positions patient has had lumbar surgery with laminectomy as well as fusion and instrumentation. Patient reports that the pain is still significant she has seen her neurosurgeon is not recommending any further surgical intervention but still has significant pain resulting in the low back which "moves around" in the back itself as well as in the legs patient reports is worse with walking standing change positions better with sitting or laying down generally does not awaken her from sleep at night does not affect her bowel bladder control or ability to walk significantly but she is using a walker with her where she goes now. Patient reports she had some epidural injections prior to her surgery in the past which were helpful but only temporarily. Patient has done physical therapy is still doing stretching strength exercises and walking as much as she can. Patient reports pain is sharp and stabbing in the back change during the day worse with activity standing walking changing positions. Patient reports her disability rating 0-10 10 and the worst is an 8 with an [employer] recreation social activity 5 occupation 1 with self-care and life support activities. Patient have recent CT scan of the lumbar spine dated July 01, 2021 showing at L45 small broad-based disc osteophyte complex posteriorly with central canal stenosis moderate and mild left and no significant right neuroforaminal narrowing with posterior paraspinal subcutaneous fluid, unchanged from previous exam. Broad-based posterior disc osteophyte complex at L3-4 with mild central canal stenosis L5-S1 shows anterolisthesis with mild bilateral neuroforaminal narrowing, instrumentation of fusion of L5-L6. Patient reports no complete loss of motor function but significant fatigability of the lower extremities as well as no bowel or bladder incontinence. PAST MEDICAL HISTORY: PMH: Arthritis, hypertension, hearing loss, dizziness, skin cancer PREVIOUS SURGERIES: Past Surgical Hx: Lumbar laminectomy x2 with posterior fusion, pacemaker placement, cataract extraction, hysterectomy, appendectomy CURRENT MEDICATIONS: Current Meds: Active Scripts Medications Dose Route/Sig Max Daily Dose Days Date Category Torsemide 20 Mg Tablet 1 Tab PO DAILY 07/27/21 Reported Klor-Con M20 (Potassium Chloride) 20 Meq Tab.er.prt 20 Meq PO DAILY 07/27/21 Reported Clonidine Hcl 0.1 Mg Tablet 0.1 Mg PO TID PRN 07/27/21 Reported Gabapentin (Gabapentin) 100 Mg Capsule 100 Mg PO BID 07/27/21 Reported Gabapentin 600 Mg Tablet 600 Mg PO HS 07/27/21 Reported Miralax (Polyethylene Glycol 3350) 17 Gm Powd.pack 1 Packet PO HS 06/17/18 Reported FENTANYL 25mcg/hr (Fentanyl) 1 Each Patch.td72 1 Patch TP Q3DAYS 05/16/18 Reported Zofran (Ondansetron Hcl) 4 Mg Tablet 1 Tab PO Q6HRS 05/16/18 Reported Calcium (Calcium Carbonate) 500 Mg Tab.chew 500 Mg PO DAILY 05/16/18 Reported Colace (Docusate Sodium) 100 Mg Capsule 100 Mg PO BID 30 05/05/17 Rx Amlodipine Besylate 5 Mg Tablet 5 Mg PO DAILY 05/03/17 Reported Losartan Potassium 100 Mg Tablet 100 Mg PO DAILY 04/27/17 Reported Hydrochlorothiazide Capsule (Hydrochlorothiazide) 12.5 Mg Capsule 25 Mg PO DAILY 04/27/17 Reported Aspir 81 (Aspirin) 81 Mg Tablet.dr 1 Tab PO DAILY 04/27/17 Reported Vitamin C (Ascorbic Acid) 500 Mg Tablet 500 Mg PO DAILY 09/29/16 Reported Vitamin E (Vitamin E Acid Succinate) 400 Unit Tablet 400 Unit PO DAILY 09/29/16 Reported Tylenol (Acetaminophen) 325 Mg Tablet 1-2 Tab PO QID 09/29/16 Reported Msm (Methylsulfonylmethane) 1,000 Mg Capsule 1,000 Mg PO DAILY 06/11/15 Reported Fish Oil 1,000 Mg Capsule ([place]-3 Fatty Acids/Fish Oil) 1 Each Capsule 1 Each PO DAILY 06/11/15 Reported Vitamin B-12 (Cyanocobalamin (Vitamin B-12)) 1,000 Mcg Tablet 1 Tab PO DAILY 06/11/15 Reported ALLERGIES; Allergies: Coded Allergies: codeine (Verified Allergy, Intermediate, 06/17/18) gluten (Verified Allergy, Intermediate, 06/17/18) rash FAMILY HISTORY: Family Hx: Diabetes, heart disease SOCIAL HISTORY: Social Hx: Patient under alcohol does not smoke says any illegal 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 REVIEW OF SYSTEMS: ROS: Positive for those items mentioned in history of present illness, all systems are reviewed, otherwise negative ,and are complete full and well-documented on patient's chart. PHYSICAL EXAM: VS: Blood pressure is 151/63 pulse 80 respirations 18 temperature 98.2 F height 5 feet 5 inches weight is 208 pounds. PE: PHYSICAL EXAMINATION: GENERAL: The patient is awake, alert, oriented, appropriate, very pleasant in demeanor HEENT: Shows normocephalic, atraumatic. Extraocular movements are intact and symmetrical. Oral cavity: Mucous membranes moist and pink. Dentition is intact. NECK: Shows anterior throat supple without palpable lymphadenopathy noted. Swallow reflex symmetrical. CHEST: Shows normal on inspection. Breath sounds are clear bilaterally, no rales rhonchi or wheezes auscultated. HEART: Shows S1, S2 clear. No murmurs auscultated. ABDOMEN: Soft, nontender, nondistended. No palpable organomegaly is noted. BACK: Shows spine grossly in the midline. Normal-appearing cervical lordotic curvature. There is slightly increased thoracic kyphosis, some significant flattening of the lumbar lordotic curvature, with well-healed surgical scarring. Lumbar paraspinous muscles show symmetrical on inspection, on palpation shows some moderate tenderness diffusely throughout the upper, middle and lower distribution of the paraspinous muscles bilaterally and also into the lower thoracic paraspinous musculature, firm and tender, but without specific trigger points, without radiation of pain. The patient has good rotational motion of the lumbar spine, both laterally as well as extension and flexion without significant difficulty. No tenderness over the spinous processes, sacrum or sacroiliac regions. EXTREMITIES: Lower extremities show deep tendon reflexes 1+ in the patellar and tendo calcaneus tendons. Motor exam is 4 on a scale of 5 with right dorsiflexion, extension, quadriceps and hamstring flexion and 4/5 on the left. Peripheral pulses are 1+ posterior tibial. No peripheral edema is noted kenisha aterally. Lower extremities are warm and dry to touch, equal in color and appearance. SKIN: Shows warm and dry, good turgor. No edema. No sores, rashes or bruising throughout. IMPRESSION: Impression: 86-year-old female with proximates 2-year history increasing pain low back and bilateral lower extremities in a radicular fashion. MRI scan lumbar spine as noted Hypertension Arthritis Hearing loss Plan: Options were discussed with patient including conservative medical man agement physical therapies and admission techniques. Patient would like to pursue initial techniques. We discussed a lumbar epidural steroid injections description as well as anatomical models to describe procedure. Risks were discussed including but not limited to: Bleeding, infection, possibility of epidural hematoma and subsequent neurological compromise, dural puncture, head aches, spinal cord and/or nerve damage, side effects of steroid medication, and poor results regarding pain control. Patient understands and wished to proceed. Patient will return to clinic in approximately 2 weeks for follow-up, was counseled as to return to moment, activity level, and side effect to be aware of. Procedure is lumbar epidural steroid injection under local anesthetic using sterile prep and drape at the L4-5 level using C-arm fluoroscopic guidance in both AP and lateral views medications injected is 20 mg dexamethasone +10mL preservative-free normal saline and 2 mL contrast- condition at discharge is stable patient tolerated procedure well had no complications. ROZINA GARSIA MD Jul 27, 2021 14:55
--- NOTE | 2021-07-27 14:56 | PDOC4 ---
Procedure Note: ICD 10 Code: ICD 10 Code: M54.16 M51.36 M4 8.06 M 96.1 Procedure Note: Patient was consented for lumbar epidural steroid injection with fluoroscopic guidance. Risks were discussed including but not limited to: Bleeding, infection, possibility of epidural hematoma and subsequent neurological compromise, dural puncture, headaches, spinal cord and/or nerve damage, side effects of steroid medication, and poor results regarding pain control. Patient understands and wished to proceed. Procedure is lumbar epidural steroid injection under local anesthetic using sterile prep and drape at the L4-5 level using C-arm fluoroscopic guidance in both AP and lateral views medications injected is 20 mg dexamethasone +10mL preservative-free normal saline and 2 mL contrast- condition at discharge is stable patient tolerated procedure well had no complications. ROZINA GARSIA MD Jul 27, 2021 14:56
== END | disposition home or self-care (01) ==
LOC: PNCL 10:04
PROVIDERS: ATTEND Anesthesiology
DX: M51.16 Intervertebral disc disorders with radiculopathy, lumbar region (principal); M48.061 Spinal stenosis, lumbar region without neurogenic claudication; M96.1 Postlaminectomy syndrome, not elsewhere classified; M19.90 Unspecified osteoarthritis, unspecified site; I10 Essential (primary) hypertension; E78.00 Pure hypercholesterolemia, unspecified; E66.9 Obesity, unspecified; Z85.828 Personal history of other malignant neoplasm of skin; Z90.49 Acquired absence of other specified parts of digestive tract; Z90.710 Acquired absence of both cervix and uterus; Z98.890 Other specified postprocedural states; Z79.899 Other long term (current) drug therapy; Z79.82 Long term (current) use of aspirin; Z88.5 Allergy status to narcotic agent; Z88.8 Allergy status to other drugs, medicaments and biological substances
CPT/HCPCS: 62323; J1100; Q9965

== ENCOUNTER → 2021-08-10 | Outpatient (CLI) | payer MEDICARE, OTHER ==
[~2021-08-10] MED LIST changes: +PANT20TA2 PO
--- NOTE | 2021-08-10 11:53 | PDOC ---
Progress Note - Pain Clinic Date of Service: DOS: DATE: 08/10/21 TIME: 11:51 Diagnosis: Dx: Lumbar radiculopathy lumbar degenerative disc disease lumbar spinal stenosis and lumbar postlaminectomy syndrome History or Present Illness: HPI: 86-year-old female returns for follow-up status post lumbar epidural steroid action x1. Patient reports approximately 100% improvement for several days following the injection the pain returning gradually but now about a 50% improvement overall with pain in the low back and bilateral lower extremities. Patient reports it is tight and aching in the back and also tight in her toes and tingling in the toes as well of the great toes most primarily right and left foot equally patient reports on and off in intensity worse with walking standing changing positions better with sitting or laying down generally does not awaken her from sleep at night. Patient reports no bowel or bladder incontinence initially to do much better distance walking doing household activities travel with greater ease and comfort and the pain now is beginning to return in the low back and lower extremities posterior gluteus lateral thighs anterior thighs medial thighs and again in the great toes bilaterally with some spasms as well in the toes. Patient reports no loss of motor function but significant fatigability of the lower extremities. Patient reports no bowel or bladder incontinence. Physical Exam: VS: Blood pressure is 145/54 pulse 77 respirations are 18 temperature 98.2 F height is 5 inches weight is 205 pounds. PE: PHYSICAL EXAMINATION: GENERAL: The patient is awake, alert, oriented, appropriate, very pleasant in demeanor HEENT: Shows normocephalic, atraumatic. Extraocular movements are intact and symmetrical. Patient wearing eyeglasses. NECK: Shows anterior throat supple without palpable lymphadenopathy noted. Swallow reflex symmetrical. CHEST: Shows normal on inspection. Breath sounds are clear bilaterally. HEART: Shows S1, S2 clear. No murmurs auscultated. ABDOMEN: Soft, nontender, nondistended. No palpable organomegaly is noted. BACK: Shows spine grossly in the midline. Normal-appearing cervical lordotic curvature. There is slightly increased thoracic kyphosis, some flattening of the lumbar lordotic curvature with well-healed surgical scarring again noted. Lumbar paraspinous muscles show symmetrical on inspection, on palpation shows some moderate tenderness diffusely throughout the upper, middle and lower distribution of the paraspinous muscles without specific trigger points, without radiation of pain. The patient has good rotational motion of the lumbar spine, both laterally as well as extension and flexion without significant difficulty. EXTREMITIES: Lower extremities show deep tendon reflexes 1+ in the patellar and tendo calcaneus tendons. Motor exam is 4 on a scale of 5 with right dorsiflexion, extension, quadriceps and hamstring flexion and 4/5 on the left. Peripheral pulses are 1+ posterior tibial. No peripheral edema is noted bilaterally. Lower extremities are warm and dry. SKIN: Shows warm and dry, good turgor. No edema. No sores, rashes or bruising throughout. Procedure: Procedure: Options were discussed with the patient. Patient chart was reviewed as her current medication regimen updated current review of systems updated today as well. We will proceed with a lumbar epidural steroid injection today with fluoroscopic guidance. Risks were discussed including but not limited to: Bleeding, infection, possibility of epidural hematoma and subsequent neurological compromise, dural puncture, headaches, spinal cord and/or nerve d amage, side effects of steroid medication, and poor results regarding pain control. Patient understands and wished to proceed. Patient will return to the clinic in approximately 2 weeks for follow-up, was counseled as to return appointment, active level, and side effects to be aware of. Medication Injected: Med Injected: Procedure is lumbar epidural steroid injection under local anesthetic using sterile prep and drape at the L4-5 level using C-arm fluoroscopic guidance in both AP and lateral views medications injected is 120 mg methylprednisolone +10mL preservative-free normal saline and 2 mL contrast- condition at discharge is stable patient tolerated procedure well had no complications. Condition at Discharge: Condition at Discharge: Condition at discharge stable, paced tolerated procedure well and had no complications. ROZINA GARSIA MD Aug 10, 2021 11:53
--- NOTE | 2021-08-10 11:54 | PDOC4 ---
Procedure Note: ICD 10 Code: ICD 10 Code: M54.16 M51.36 M48.06 M96.1 Procedure Note: Patient is consented for lumbar epidural steroid injection fluoroscopic guidance. Risks were discussed including but not limited to: Bleeding, infection, possibility of epidural hematoma and subsequent neurological compromise, dural puncture, headaches, spinal cord and/or nerve damage, side effects of steroid medication, and poor results regarding pain control. Patient understands and wished to proceed. Procedure is lumbar epidural steroid injection under local anesthetic using ster ile prep and drape at the L4-5 level using C-arm fluoroscopic guidance in both AP and lateral views medications injected is 120 mg methylprednisolone +10mL preservative-free normal saline and 2 mL contrast- condition at discharge is stable patient tolerated procedure well had no complications. ROZINA GARSIA MD Aug 10, 2021 11:54
== END | disposition home or self-care (01) ==
LOC: PNCL 11:21
PROVIDERS: ATTEND Anesthesiology
DX: M51.16 Intervertebral disc disorders with radiculopathy, lumbar region (principal); M48.061 Spinal stenosis, lumbar region without neurogenic claudication; M96.1 Postlaminectomy syndrome, not elsewhere classified; I10 Essential (primary) hypertension; E78.00 Pure hypercholesterolemia, unspecified; E66.9 Obesity, unspecified; M19.90 Unspecified osteoarthritis, unspecified site; Z85.828 Personal history of other malignant neoplasm of skin; Z90.49 Acquired absence of other specified parts of digestive tract; Z90.710 Acquired absence of both cervix and uterus; Z98.890 Other specified postprocedural states; Z79.82 Long term (current) use of aspirin; Z79.899 Other long term (current) drug therapy; Z88.5 Allergy status to narcotic agent; Z88.8 Allergy status to other drugs, medicaments and biological substances
CPT/HCPCS: 62323; J1100; Q9965

== ENCOUNTER → 2021-09-01 | Outpatient (CLI) | payer MEDICARE, OTHER ==
--- NOTE | 2021-09-01 12:18 | PDOC4 ---
Procedure Note: ICD 10 Code: ICD 10 Code: M54.16 M51.36 M48.06 M96.1 Procedure Note: Patient consented for lumbar epidural steroid injection with fluoroscopic guidance. Risks were discussed including but not limited to: Bleeding, infection, possibility of epidural hematoma and subsequent neurological compromise, dural puncture, headaches, spinal cord and/or nerve damage, side effects of steroid medication, and poor results regarding pain control. Patient understands and wished to proceed. Procedure is lumbar epidural steroid injection under local anesthetic using st erile prep and drape at the L4-5 level using C-arm fluoroscopic guidance in both AP and lateral views medications injected is 20 mg dexamethasone +10mL preservative-free normal saline and 2 mL contrast- condition at discharge is stable patient tolerated procedure well had no complications. ROZINA GARSIA MD September 01, 2021 12:18
--- NOTE | 2021-09-01 12:18 | PDOC ---
Progress Note - Pain Clinic Date of Service: DOS: DATE: 09/01/21 TIME: 12:15 Diagnosis: Dx: Lumbar radiculopathy with lumbar degenerative disease lumbar spinal stenosis with lumbar postlaminectomy syndrome History or Present Illness: HPI: 86-year-old female returns for follow-up status post lumbar epidural steroid injection x2. Patient reports about 100% improvement for several days following the injection and now the pain has been decreased to more significantly for about a week to week and a half with 100% improvement in the low back and bilateral lower extremities patient reports that she is doing better than after the first shot but still has some significant pain low back and lower extremities as noted patient reports her pain is 8 on scale 10 is worse over the past week 6-7 on average 0 at its least is a 6 today patient ports aching and dull tingling stabbing the back on and off in intensity worse with walking standing changing positions better with sitting or laying down does not awaken her from sleep at night. Patient reports no bowel or bladder incontinence. Physical Exam: VS: Blood pressure is 137/52 pulse 83 respirations 18 temperature is 98.3 F weight is 203 pounds. PE: PHYSICAL EXAMINATION: GENERAL: The patient is awake, alert, oriented, appropriate, very pleasant in demeanor HEENT: Shows normocephalic, atraumatic. Extraocular movements are intact and symmetrical. Oral cavity: Mucous membranes moist and pink. Dentition is intact. NECK: Shows anterior throat supple without palpable lymphadenopathy noted. Swallow reflex symmetrical. CHEST: Shows normal on inspection. Breath sounds are clear bilaterally. HEART: Shows S1, S2 clear. No murmurs auscultated. ABDOMEN: Soft, nontender, nondistended. No palpable organomegaly is noted. BACK: Shows spine grossly in the midline. Normal-appearing cervical lordotic curvature. There is moderately increased thoracic kyphosis, some flattening of the lumbar lordotic curvature. Lumbar paraspinous muscles show symmetrical on inspection, on palpation shows some moderate tenderness diffusely throughout the upper, middle and lower distribution of the paraspinous muscles, but without specific trigger points, without radiation of pain. The patient has good rotational motion of the lumbar spine, both laterally as well as extension and flexion without significant difficulty. EXTREMITIES: Lower extremities show deep tendon reflexes 1+ in the patellar and tendo calcaneus tendons. Motor exam is 4 on a scale of 5 with right kam siflexion, extension, quadriceps and hamstring flexion and 4/5 on the left. Peripheral pulses are 1+ posterior tibial. No peripheral edema is noted bilaterally. Lower extremities are warm and dry. SKIN: Shows warm and dry, good turgor. No edema. No sores, rashes or bruising throughout. Procedure: Procedure: Options were discussed with the patient. Patient's old chart was reviewed as her current medication regimen updated current review of systems updated today as well. We will proceed with a lumbar epidural steroid injection today with fluoroscopic guidance risks were discussed including but not limited to: Bleeding, infection, possibility of epidural hematoma and subsequent neurological compromise, dural puncture, headaches, spinal cord and/or nerve damage, side effects of steroid medication, and poor results regarding pain control. Patient understands and wished to proceed. Patient will return to clinic in approximate 2 weeks for follow-up, was counseled as return a ppointment, active level, and side effects to be aware of. Medication Injected: Med Injected: Procedure is lumbar epidural steroid injection under local anesthetic using sterile prep and drape at the L4-5 level using C-arm fluoroscopic guidance in both AP and lateral views medications injected is 20 mg dexamethasone +10mL preservative-free normal saline and 2 mL contrast- condition at discharge is stable patient tolerated procedure well had no complications. Condition at Discharge: Condition at Discharge: Condition at discharge stable, paced tolerated procedure well and had no complications. ROZINA GARSIA MD September 01, 2021 12:18
== END | disposition home or self-care (01) ==
LOC: PNCL 10:27
PROVIDERS: ATTEND Anesthesiology
DX: M51.16 Intervertebral disc disorders with radiculopathy, lumbar region (principal); M48.061 Spinal stenosis, lumbar region without neurogenic claudication; M96.1 Postlaminectomy syndrome, not elsewhere classified; I10 Essential (primary) hypertension; E78.00 Pure hypercholesterolemia, unspecified; E66.9 Obesity, unspecified; M19.90 Unspecified osteoarthritis, unspecified site; Z85.828 Personal history of other malignant neoplasm of skin; Z90.49 Acquired absence of other specified parts of digestive tract; Z98.890 Other specified postprocedural states; Z90.710 Acquired absence of both cervix and uterus; Z88.5 Allergy status to narcotic agent; Z88.8 Allergy status to other drugs, medicaments and biological substances; Z79.82 Long term (current) use of aspirin; Z79.899 Other long term (current) drug therapy
CPT/HCPCS: 62323; J1100; Q9965